=== PATIENT | female | born 1935 | race Caucasian/White ===

== ENCOUNTER 2018-05-11 23:05 | Emergency (ER) | payer MEDICARE ==
[2018-05-11] MEDS ORDERED: Adacel (T-DAP) 0.5 ML VIAL ONE (23:35)
== END 2018-05-12 00:05 | disposition home or self-care (01) ==
LOC: SCSER 23:05
DX: S61.451A Open bite of right hand, initial encounter (principal); S61.411A Laceration without foreign body of right hand, initial encounter; I10 Essential (primary) hypertension; W54.0XXA Bitten by dog, initial encounter
CPT/HCPCS: 90471; 90715

== ENCOUNTER 2018-05-21 20:43 | Inpatient (IN) | payer MEDICARE ==
[2018-05-21 21:31] LABS: Mean Corpuscular HGB CONC 32.4 g/dL (32.0-36.0); Mean Corpuscular Hemoglobin 29.6 pg (27.0-31.0); Mean Corpuscular Volume 91.5 fL (78.0-98.0); Mean Platelet Volume 8.2 fL (7.4-10.4); Platelet Count 276 thou/uL (130-400); RBC Distribution Width 12.5 % (11.5-14.5); Red Blood Cell (RBC) Count 4.06 mill/uL (4.20-5.40); White Blood Cell (WBC) Count 9.6 thou/uL (4.8-10.8)
--- NOTE | 2018-05-21 21:35 | RAD ---
RIGHT HAND THREE VIEWS: 05/21/18 HISTORY: Right hand injury. FINDINGS: Scattered osteoarthritic changes. Osseous structures are demineralized. No acute fracture or dislocat ion are apparent. Findings overlap on the lateral view. IMPRESSION: Mild degenerative changes. Osteoporosis. No acute osseous abnormalities are reliably demonstrated. POS: [facility]
--- NOTE | 2018-05-21 21:37 | RAD ---
CHEST ONE VIEW 05/21/18 HISTORY: Fever. FINDINGS: No comparison. The cardiac silhouette is magnified by projection. Pulmonary vasculature upper limits of normal. Medi astinum is midline. No lobar consolidation or evidence of pneumothorax. classroom monitor leads overlie the chest. IMPRESSION: No active cardiopulmonary abnormalities are demonstrated. POS: [facility]
[2018-05-21 21:45] LABS: Bilirubin Negative (Negative); Blood, Urine Negative (Negative); Clarity CLOUDY (Clear); Glucose, Urine (Dipstick) Negative (Negative); Leukocyte Large (Negative); Nitrite Positive (Negative); Protein, Urine (Dipstick) 30 mg/dL (Neg-Trace); Specific Gravity, Urine 1.016 (1.002-1.036); Urobilinogen 0.2 mg/dL (0.2-1.0)
[2018-05-21 21:47] LABS: Bacteria/HPF 4+ HPF (None Seen); Hyaline Casts/LPF 4-6 HYALINE CAST LPF (0-3 Hyaline); Pathc Cast-AUWi Flag 1.23 (0-2.49); RBC/HPF 0-3 HPF (0-3); Squamous Epithelial 0-3 HPF (0-3)
--- NOTE | 2018-05-21 21:49 | CT ---
CT HEAD NONCONTRAST 05/21/18 HISTORY: Fall. Head injury. FINDINGS: There is no evidence of acute intracranial hemorrhage or infarct. Mild diffuse cortical atrophy. No m ass effect or shift of midline structures. The visualized paranasal sinuses remain well aerated. IMPRESSION: No acute intracranial abnormalities are demonstrated. POS: [facility]
[2018-05-21 21:52] LABS: Band 15 % (5-11); Lymphocytes 5 % (21-51); MDiff Complete? YES; Neutrophil 80 % (42-75)
[2018-05-21 21:53] LABS: ALT (SGPT) 15 U/L (8-55); AST (SGOT) 23 U/L (5-34); Albumin 3.1 g/dL (3.4-4.8); Alkaline Phosphatase 133 U/L (40-150); Anion Gap 13 mmol/L (10-20); BUN (Urea Nitrogen) 25 mg/dL (9.8-20.1); Bilirubin, Total 0.2 mg/dL (0.2-1.2); CK (CPK) 62 U/L (29-168); Calc. Creatinine Clearance 0 mL/min (70-130); Calcium 9.6 mg/dL (7.8-10.44); Carbon Dioxide 21 mmol/L (23-31); Chloride 102 mmol/L (98-107); Estimated GFR-MDRD 55; Globulin 4.8 g/dL (2.4-3.5); Glucose 111 mg/dL (83-110); Potassium 3.7 mmol/L (3.5-5.1); Protein, Total 7.9 g/dL (6.0-8.3); Sodium 132 mmol/L (136-145)
--- NOTE | 2018-05-21 21:56 | CT ---
CT CERVICAL SPINE NONCONTRAST: 05/21/18 HISTORY: Fall. Neck injury. FINDINGS: Vertebral body heights are maintained. Minimal degenerative spondylolisthesis of the C4-5 level. Mult ilevel disc space narrowing. Prominent osteophytosis. Cervicothoracic junction is intact. No acute fr acture or dislocation. IMPRESSION: Degenerative changes of the cervical spine. No acute osseous abnormalities are demonstrated. POS: [facility]
[2018-05-21 21:59] LABS: CKMB 2.9 ng/mL (0-6.6); Troponin I Less than 0.010 ng/mL (< 0.028)
[2018-05-21] MEDS ORDERED: cefTRIAXone\\ROCEPHIN 2 GM VIAL ONE ×2 (22:04→22:07)
--- NOTE | 2018-05-21 22:59 | PDOC.FPRHP ---
- History of Present Illness Chief Complaint: fall History of Present Illness: Pt is an 82yo F with pmh of HTN and OA presenting for fall earlier today. This evening pt was in kitchen and began to feel weak and light headed. She reports going to sit in a bar stool and losing her balance, falling back and striking her head on the lanolium floor. Denies LOC. Pt had one episode of vomiting while being transported to ED but denies nausea on interview. Denies SOB/cp/ palpitations/dysuria but endorses increased frequency at night. Of note pt also reports a dog bite on her R hand 10 days ago that she has been treated for with 10 days of Bactrim. Reports that after a few days of bactrim, her pcp instructed her to take 14 more days of bactrim. This morning she had some pain along the joints in R finger 4 though the bite has since healed and was on the dorsal aspect of the thenar eminence. ED Course: CT head/neck- negative - Allergies/Adverse Reactions Allergies Allergy/AdvReac Type Severity Reaction Status Date / Time Penicillins Allergy Verified 05/22/18 01:02 - Home Medications Medication Instructions Recorded Confirmed Type Diltiazem HCl [Diltiazem 24Hr CD] 180 mg PO DAILY 05/21/18 05/21/18 History Losartan/Hydrochlorothiazide 1 tablet PO DAILY 05/21/18 05/21/18 History [Losartan-Hctz 100-25 mg Tab] - History PMHx: HTN, OA, possible afib PSHx: back surgery (unspecified), hysterectomy FHx: none Social: occasional social EtOH use, denies tobacco/drugs - Review of Systems General: reports: fever/chills, fatigue Eyes: denies: eye pain, vision changes ENT: denies: nasal congestion, rhinorrhea Respiratory: denies: cough, congestion, shortness of breath Cardiovascular: denies: chest pain, palpitation Gastrointestinal: denies: nausea, vomiting Genitourinary: reports: polyuria. denies: incontinence, dysuria Skin: denies: rashes, lesions Musculoskeletal: denies: pain, stiffness Neurological: reports: weakness. denies: numbness, syncope, seizure Psychological: denies: anxiety, depression - Vital signs BP: [112/54] HR: [96] RR: [26] Tmax: [101.7] Pox: [98]% on [RA] Wt: [90] - Physical Exam Constitutional: NAD, awake, alert and oriented HEENT: normocephalic and atraumatic, EOMI, grossly normal vision, grossly normal hearing, MMM Neck: supple, trachea midline Chest: no-tender to palpation Heart: RRR, pulses present, other (grad 3/6 holosystolic murmur) Lungs: CTAB, no respiratory distress Abdomen: soft, non-tender Musculoskeletal: normal structure, normal tone Skin: good turgor, capillary refill <2 seconds Heme/Lymphatic: no purpura, no petechia Psychiatric: normal mood and affect, good judgment and insight FMR H&P: Results - Labs Result Diagrams: 05/21/18 21:08 05/21/18 21:08 Lab results: WBC 9.6 thou/uL (4.8-10.8) 05/21/18 21:08 Hgb 12.0 g/dL (12.0-16.0) 05/21/18 21:08 Hct 37.2 % (36.0-47.0) 05/21/18 21:08 MCV 91.5 fL (78.0-98.0) 05/21/18 21:08 Plt Count 276 thou/uL (130-400) 05/21/18 21:08 Band Neuts % (Manual) 15 % (5-11) H 05/21/18 21:08 Sodium 132 mmol/L (136-145) L 05/21/18 21:08 Potassium 3.7 mmol/L (3.5-5.1) 05/21/18 21:08 Chloride 102 mmol/L (98-107) 05/21/18 21:08 Carbon Dioxide 21 mmol/L (23-31) L 05/21/18 21:08 BUN 25 mg/dL (9.8-20.1) H 05/21/18 21:08 Creatinine 0.97 mg/dL (0.6-1.1) 05/21/18 21:08 Glucose 111 mg/dL (83-110) H 05/21/18 21:08 Lactic Acid 2.4 mmol/L (0.5-2.2) H 05/21/18 21:08 Calcium 9.6 mg/dL (7.8-10.44) 05/21/18 21:08 Total Bilirubin 0.2 mg/dL (0.2-1.2) 05/21/18 21:08 AST 23 U/L (5-34) 05/21/18 21:08 ALT 15 U/L (8-55) 05/21/18 21:08 Alkaline Phosphatase 133 U/L (40-150) 05/21/18 21:08 Creatine Kinase 62 U/L (29-168) 05/21/18 21:08 CK-MB (CK-2) 2.9 ng/mL (0-6.6) 05/21/18 21:08 Serum Total Protein 7.9 g/dL (6.0-8.3) 05/21/18 21:08 Albumin 3.1 g/dL (3.4-4.8) L 05/21/18 21:08 Urine Ketones Negative mg/dL (Negative) 05/21/18 21:19 Urine Blood Negative (Negative) 05/21/18 21:19 Urine Nitrite Positive (Negative) H 05/21/18 21:19 Ur Leukocyte Esterase Large (Negative) H 05/21/18 21:19 Urine RBC 0-3 HPF (0-3) 05/21/18 21:19 Urine WBC Greater Than 50-TNTC HPF (0-3) H 05/21/18 21:19 Ur Squamous Epith Cells 0-3 HPF (0-3) 05/21/18 21:19 Urine Bacteria 4+ HPF (None Seen) H 05/21/18 21:19 FMR H&P: A/P - Problem List (1) Sepsis secondary to UTI Current Visit: Yes Status: Acute Code(s): A41.9 - SEPSIS, UNSPECIFIED ORGANISM; N39.0 - URINARY TRACT INFECTION, SITE NOT SPECIFIED (2) A-fib Current Visit: Yes Status: Acute Code(s): I48.91 - UNSPECIFIED ATRIAL FIBRILLATION (3) Lactic acid acidosis Current Visit: Yes Status: Acute Code(s): E87.2 - ACIDOSIS (4) Hypertension Current Visit: Yes Status: Acute Code(s): I10 - ESSENTIAL (PRIMARY) HYPERTENSION - Plan Sepsis 2/2 UTI A- fever, malaise, and history of weakness/falls. CT head/neck negative for acute pathology. UA positive for UTI and pt met SIRS criteria (HR and fever) on admission. s/p rocephin in ED. P- continue Rocephin q24hr - IVF - await UCx Lactic Acidosis 2/2 above A- lactate 2.4 P- IVF Hx of atrial fibrillation A- reports being stable on home diltiazem P- home meds -monitor on telemetry HTN A- pt at goal P- continue home medications FMR H&P: Upper Level - Pertinent history 82 yo CF with history of HTN, afib, and OA presenting with fever, weakness, and history of falls. Pt has felt weakness and overall malaise over the last few days. Pt notes she was recently treated outpatient for a dog bite to right hand with 5 day course of Bactrim. Pt's son noted she was more dizzy today and took a temperature at home that was elevated. Pt presented to ED. Pt denies LEES, CP, SOB, abd pain, NVD, dysuria, rash, sick contacts, or recent travel. - Pertinent findings Vitals: see internal medicine doctor note Gen: Well appearing in NAD CV: RRR, no MMR Resp: good effort, CTAB Abd: BS+, soft, NTTP Ext: well healed right hand, no evidence of cellulitis - Plan Date/Time: 05/21/18 0435 I, Misael Hogue MD, have evaluated this patient and agree with findings/plan as outlined by internal medicine doctor resident. Pertinent changes/additions are listed here. 1. Sepsis 2/2 UTI -Pt presents with fever, malaise, and history of weakness/falls. Workup consistent with UTI and pt was febrile and slightly tachycardic on presentation. Will admit to inpatient telemetry due to history of afib and continue mIVF and treatment for UTI with Rocephin. -Consult PT for evaluation and treatment, pt may benefit from rehab/SNF placement at time of discharge. 2. Lactic Acidosis 2/2 above -IVF and trend 3. Hx of atrial fibrillation -Continue home medications -Monitor on telemetry 4. HTN -At goal, continue janiya medications FULL code PPx: Lovenox for VTE, no GI indicated Disposition: Admit to inpatient telemetry for anticipated length of stay greater than 2 midnights, pending clinical course. Attending Addendum - Attending Addendum Date/Time: 05/21/18 2345 I personally evaluated the patient and discussed the management with Dr. Anderson /Mykel. I agree with the History, Examination, Assessment and Plan documented above with any addition or exceptions noted below. Patient here with few days of malaise and weakness. She has been treated outpatient for possible hand wound infection. On exam, she has no major abnormalities. Febrile at home. Her UA is consistent with UTI. Will begin treatment for UTI with Rocephin. Fluid hydrate, obtain blood and urine cultures. Treat symptomatically as needed for fever/pain. She has history of afib and has had a few recent falls so will monitor on telemetry. Anticipate 2- 3 days hospitalization and may need SNF or rehab upon discharge.
[2018-05-22] MEDS ORDERED: Sodium Chloride 0.9% 1,000 ML IV SCH (01:03)
[2018-05-22] MEDS ORDERED: Acetaminophen 325 MG TAB PO PRN (01:03)
[2018-05-22] MEDS ORDERED: Ondansetron ODT 4 MG TAB SL PRN (01:03)
[2018-05-22] MEDS ORDERED: Ondansetron PF 4 MG/2 ML Vial IVP PRN (01:03)
[2018-05-22] MEDS ORDERED: Ondansetron ODT 4 MG TAB PO PRN (01:04)
[2018-05-22] MEDS: Lactated Ringer's 1,000 ML IV SCH ×2 (01:21→13:40)
[2018-05-22 01:48] LABS: Lactic Acid 1.7 mmol/L (0.5-2.2)
[2018-05-22] MEDS ORDERED: Magnesium 2 GM/50 ML 2 GM in Premix Bag 1 BAG IVPB SCH (03:30)
[2018-05-22 05:25] LABS: #Basophils 0.1 thou/uL (0.0-0.2); #Lymphocytes 0.4 thou/uL (1.20-3.40); #Monocytes 0.2 thou/uL (0.11-0.59); %Basophils 0.7 % (0.0-1.0); %Eosinophils 0.2 % (0.0-10.0); %Lymphocytes 3.2 % (21.0-51.0); %Monocytes 1.8 % (0.0-10.0); %Neutrophils 94.2 % (42.0-75.0); Mean Corpuscular HGB CONC 32.1 g/dL (32.0-36.0); Mean Corpuscular Hemoglobin 29.1 pg (27.0-31.0); Mean Corpuscular Volume 90.7 fL (78.0-98.0); Mean Platelet Volume 8.2 fL (7.4-10.4); Platelet Count 237 thou/uL (130-400); RBC Distribution Width 12.3 % (11.5-14.5); Red Blood Cell (RBC) Count 3.42 mill/uL (4.20-5.40); White Blood Cell (WBC) Count 12.7 thou/uL (4.8-10.8)
[2018-05-22 05:40] LABS: Anion Gap 7 mmol/L (10-20); BUN (Urea Nitrogen) 24 mg/dL (9.8-20.1); Calc. Creatinine Clearance 73 mL/min (70-130); Calcium 8.6 mg/dL (7.8-10.44); Carbon Dioxide 21 mmol/L (23-31); Chloride 107 mmol/L (98-107); Estimated GFR-MDRD 63; Glucose 133 mg/dL (83-110); Potassium 3.4 mmol/L (3.5-5.1); Sodium 132 mmol/L (136-145)
--- NOTE | 2018-05-22 06:15 | PDOC.FM ---
- Subjective Subjective: Ms. Bravo is sitting up in bed deciding what she would like to order for supper, She reports her weakness is improved and she would like to go home today. - Objective Vital Signs & Weight: Vital Signs (12 hours) Temp Pulse Resp BP Pulse Ox 05/22/18 04:08 98.3 F 75 16 100/52 L 93 L 05/22/18 00:55 99.2 F 83 16 93/54 L 96 Weight Weight 90.356 kg Result Diagrams: 05/22/18 04:45 05/22/18 04:45 <Dominguez Stein - Last Filed: 05/22/18 07:25> - Objective Vital Signs & Weight: Vital Signs (12 hours) Temp Pulse Resp BP Pulse Ox 05/22/18 08:35 98.1 F 71 18 111/52 L 97 05/22/18 04:08 98.3 F 75 16 100/52 L 93 L 05/22/18 00:55 99.2 F 83 16 93/54 L 96 Weight Weight 90.356 kg Result Diagrams: 05/22/18 04:45 05/22/18 04:45 <German Mcnamara - Last Filed: 05/22/18 10:15> Phys Exam - Physical Examination Constitutional: NAD HEENT: moist MMs Respiratory: no wheezing, no rales, no rhonchi, clear to auscultation bilateral Cardiovascular: RRR, no significant murmur Gastrointestinal: soft, non-tender, no distention Musculoskeletal: no edema Neurological: moves all 4 limbs Psychiatric: normal affect Skin: no rash <Dominguez Stein - Last Filed: 05/22/18 07:25> Dx/Plan (1) Sepsis secondary to UTI Code(s): A41.9 - SEPSIS, UNSPECIFIED ORGANISM; N39.0 - URINARY TRACT INFECTION, SITE NOT SPECIFIED Status: Acute (2) Hypomagnesemia Code(s): E83.42 - HYPOMAGNESEMIA Status: Acute (3) A-fib Code(s): I48.91 - UNSPECIFIED ATRIAL FIBRILLATION Status: Acute (4) Hypertension Code(s): I10 - ESSENTIAL (PRIMARY) HYPERTENSION Status: Acute - Plan Plan: Sepsis 2/2 UTI - UA positive for UTI and pt met SIRS criteria (HR and fever) on admission. s/p rocephin in ED. - continue Rocephin q24hr - Adequate 30ml/kg fluid resuscitation in ED - gentle IVF LR @ 80/hr, encourage PO fluids - await UCx and sensitivities Hypomagnesemia - s/p 2gm IV - recheck in AM Lactic Acidosis 2/2 above - lactate 2.4, down trend Hx of atrial fibrillation - reports being stable on home diltiazem - continue home meds - monitor on telemetry HTN - pt at goal - continue home medications Code: Full ppx: Lovenox Dispo: continue to monitor on tele, gentle IVF resuscitation, continue abx and await culture sensitivities <Dominguez Stein - Last Filed: 05/22/18 07:25> Attending Addendum - Attending Addendum Date/Time: 05/22/18 1014 I personally evaluated the patient and discussed the management with Dr. Stein. I agree with the History, Examination, Assessment and Plan documented above with any addition or exceptions noted below. Patient feeling improved today. Continue treatment for UTI sepsis. IVF, cultures pending, and Rocephin. Trend procalcitonin with repeat tomorrow. No reason to suspect major MDR pathogen at this time. <German Mcnamara - Last Filed: 05/22/18 10:15>
[2018-05-22] MEDS: Enoxaparin Sodium 40 MG/0.4 ML SYRINGE SC SCH (08:33)
[2018-05-22] MEDS: Losartan/Hydrochlorothiazide 100 mg/25 mg Tablet PO SCH (08:39)
[2018-05-22] MEDS: Acetaminophen 325 MG TAB PO PRN ×2 (15:41→19:15)
[2018-05-22] MEDS ORDERED: cefTRIAXone\\ROCEPHIN 1 GM in Sodium Chloride 0.9% 100 ML IVPB SCH (22:00)
[2018-05-23] MEDS: Lactated Ringer's 1,000 ML IV SCH (05:15)
--- NOTE | 2018-05-23 06:15 | PDOC.FM ---
- Subjective Subjective: NAEO. Patient denies any N/V/D, constipation, chest pain or SOB. Also denies any orthostasis since admission and says her lightheadedness has greatly improved. - Objective MAR Reviewed: Yes Vital Signs & Weight: Vital Signs (12 hours) Temp Pulse Resp BP Pulse Ox 05/23/18 04:00 98.0 F 65 18 114/56 L 93 L 05/23/18 00:00 98.5 F 68 18 106/51 L 95 05/22/18 20:20 98.5 F 73 16 95/52 L 94 L 05/22/18 20:15 94 L Weight Weight 90.356 kg I&O: 05/21/18 05/22/18 05/23/18 06:59 06:59 06:59 Intake Total 2000 Output Total 200 Balance 1800 Result Diagrams: 05/23/18 05:45 05/23/18 05:45 <Aleksandra Shepherd - Last Filed: 05/23/18 08:38> - Objective Vital Signs & Weight: Weight Admit Weight 90.356 kg Weight 52.2 kg I&O: 05/23/18 05/24/18 05/25/18 06:59 06:59 06:59 Intake Total 2000 Output Total 200 Balance 1800 Result Diagrams: 05/23/18 05:45 05/23/18 05:45 <Leo Resendiz - Last Filed: 05/24/18 08:08> Phys Exam - Physical Examination Constitutional: NAD HEENT: moist MMs Neck: supple, full ROM Respiratory: no wheezing, no rales, no rhonchi, clear to auscultation bilateral Cardiovascular: RRR, no significant murmur Gastrointestinal: soft, non-tender, no distention, positive bowel sounds Musculoskeletal: no edema, pulses present Neurological: non-focal, normal sensation, moves all 4 limbs Psychiatric: normal affect, A&O x 3 Skin: no rash, normal turgor, cap refill <2 seconds <Aleksandra Shepherd - Last Filed: 05/23/18 08:38> Dx/Plan (1) A-fib Code(s): I48.91 - UNSPECIFIED ATRIAL FIBRILLATION Status: Acute (2) Hypertension Code(s): I10 - ESSENTIAL (PRIMARY) HYPERTENSION Status: Acute (3) Hypomagnesemia Code(s): E83.42 - HYPOMAGNESEMIA Status: Acute (4) Lactic acid acidosis Code(s): E87.2 - ACIDOSIS Status: Acute (5) Sepsis secondary to UTI Code(s): A41.9 - SEPSIS, UNSPECIFIED ORGANISM; N39.0 - URINARY TRACT INFECTION, SITE NOT SPECIFIED Status: Acute - Plan Plan: UTI - UA positive for UTI. Cx + for E. coli. Will switch to PO ciprofloxacin today per susceptibilities. - Will consider de-escalating IVFs today if patient is tolerating PO. Sepsis 2/2 UTI - Resolved. Vitals have been WNLs since arriving to the floor and patient has been afebrile. - Blood cultures tentatively negative. Hypophosphatemia - Phosphorus low at 2.0 this AM. - Will replace with PO Phos-Nak. Hyponatremia - Na 131 this AM. Hypomagnesemia - Resolved. Mg 1.8 this AM. Lactic Acidosis 2/2 above - lactate 2.4 & downtrended to 1.7 Hx of atrial fibrillation Aware, patient has been in NSR since admission. - Will continue home meds & continue to monitor on telemetry. HTN - Patient at goal. - Will continue home medications. Code: Full ppx: Lovenox Dispo: Will continue to monitor on tele & switch to PO abx today. Possible d/c home later today. <Aleksandra Shepherd - Last Filed: 05/23/18 08:38> Attending Addendum - Attending Addendum Date/Time: 05/24/18 0808 I personally evaluated the patient and discussed the management with Dr. Shepherd yesterday morning. I agree with the History, Examination, Assessment and Plan documented above with any addition or exceptions noted below. We will switch to cephalosporins po antibiotic. <Leo Resendiz - Last Filed: 05/24/18 08:08>
[2018-05-23 06:25] LABS: ALT (SGPT) 19 U/L (8-55); AST (SGOT) 33 U/L (5-34); Albumin 2.5 g/dL (3.4-4.8); Alkaline Phosphatase 98 U/L (40-150); Anion Gap 10 mmol/L (10-20); BUN (Urea Nitrogen) 23 mg/dL (9.8-20.1); Bilirubin, Total 0.2 mg/dL (0.2-1.2); Calc. Creatinine Clearance 86 mL/min (70-130); Calcium 8.9 mg/dL (7.8-10.44); Carbon Dioxide 19 mmol/L (23-31); Chloride 106 mmol/L (98-107); Estimated GFR-MDRD 77; Globulin 3.8 g/dL (2.4-3.5); Glucose 98 mg/dL (83-110); Magnesium 1.8 mg/dL (1.6-2.6); Potassium 3.6 mmol/L (3.5-5.1); Protein, Total 6.3 g/dL (6.0-8.3); Sodium 131 mmol/L (136-145)
[2018-05-23 07:06] LABS: #Eosinphils 0.4 thou/uL (0.0-0.7); #Lymphocytes 0.8 thou/uL (1.20-3.40); #Monocytes 0.3 thou/uL (0.11-0.59); #Neutrophils 3.8 thou/uL (1.40-6.50); %Basophils 0.2 % (0.0-1.0); %Eosinophils 7.1 % (0.0-10.0); %Lymphocytes 14.9 % (21.0-51.0); %Monocytes 5.6 % (0.0-10.0); %Neutrophils 72.3 % (42.0-75.0); Mean Corpuscular HGB CONC 31.1 g/dL (32.0-36.0); Mean Corpuscular Hemoglobin 28.5 pg (27.0-31.0); Mean Corpuscular Volume 91.4 fL (78.0-98.0); Mean Platelet Volume 8.7 fL (7.4-10.4); Platelet Count 219 thou/uL (130-400); RBC Distribution Width 12.3 % (11.5-14.5); White Blood Cell (WBC) Count 5.2 thou/uL (4.8-10.8)
[2018-05-23] MEDS: Losartan/Hydrochlorothiazide 100 mg/25 mg Tablet PO SCH (08:16)
[2018-05-23] MEDS: Enoxaparin Sodium 40 MG/0.4 ML SYRINGE SC SCH (08:16)
[2018-05-23] MEDS ORDERED: Cipro 250 MG TAB PO SCH (09:00)
[2018-05-23] MEDS ORDERED: Ciprofloxacin 500 MG TAB PO SCH ×2 (09:00→20:00)
[2018-05-23] MEDS ORDERED: Nitrofurantoin Monohyd/M-Cryst 100 MG CAP PO SCH (09:00)
[2018-05-23 09:26] LABS: Lactate 2.86 mmol/L (0.50-2.20)
[2018-05-23] MEDS ORDERED: Cefdinir 300 MG CAP PO SCH ×3 (10:30→21:00)
[2018-05-23 12:24] VITALS: BMI 21.0
[2018-05-23 13:18] LABS: Lactic Acid 1.2 mmol/L (0.5-2.2)
[2018-05-23 16:18] VITALS: BP 129/57; TEMP 98.2
--- NOTE | 2018-05-24 07:47 | DIS-2 ---
DATE OF ADMISSION: 05/21/2018 DATE OF DISCHARGE: 05/23/2018. RESIDENT: Dr. Aleksandra Shepherd ADMITTING ATTENDING: German Mcnamara MD DISCHARGE ATTENDING: Dr. Leo Resendiz M.D. CONSULTATIONS: None. PROCEDURES: 1. Right hand x-ray which shows some mild degenerative changes and osteoporosis , but no acute osseous abnormalities. 2. Brain CT which showed no acute intracranial abnormalities. 3. Cervical spine CT which showed degenerative changes of the cervical spine with no acute osseous abnormalities. 4. Chest x-ray which showed no active cardiopulmonary abnormalities. PRIMARY DISCHARGE DIAGNOSES: 1. Sepsis secondary to urinary tract infection. 2. Lactic acidosis. 3. Hypomagnesemia. 4. Hypophosphatemia. SECONDARY DIAGNOSES: 1. Hypertension. 2. Atrial fibrillation. DISCHARGE MEDICATIONS: 1. Acetaminophen 650 mg p.o. q.4 hours p.r.n. for pain. 2. Aspirin 81 mg p.o. daily. 3. Diltiazem 180 mg p.o. daily. 4. Losartan/hydrochlorothiazide 100/25 mg 1 tab p.o. daily. HOSPITAL COURSE: The patient is an 82-year-old female with a past medical history significant for hypertension and atrial fibrillation who presented to the emergency department with chief complaint of a fall earlier on the day of presentation secondary to feeling weak and lightheaded. She endorsed hitting her head on the linoleum floor, but denied any loss of consciousness. She also endorsed some associated vomiting. On presentation to the emergency department, the patient was noted to be febrile with a temperature of 101.7F. Routine lab work was significant for an elevated lactic acid at 2.4 and a procalcitonin of 9.23. A urinalysis was also obtained, which was significant for nitrites, large leukocyte esterase, greater than 50 white blood cells, and 4+ bacteria suggesting she had a urinary tract infection. Routine imaging was also obtained including a right hand x-ray, brain CT, cervical spine CT and a chest x-ray, all of which were negative. However, given the patient's fever and elevated lactic acid, she was determined to be septic secondary to her urinary tract infection and was given one dose of IV Rocephin in the emergency department and admitted to the medical services for close observation overnight. The patient was continued on IV Rocephin for her second day of hospitalization as well as gentle IV fluids with LR at 80 mL an hour. On her second day of hospitalization, the patient was noted to have a low serum potassium and Mg of 3.4 and 1.1, which were replaced. By the morning of discharge, the patient's potassium and Mg had risen to be within normal levels; however, her serum phosphorus was low at 2.0. This was replaced with p.o. Fosamax. By the morning of discharge, it was noted that the patient's lactic acid had down trended from 2.4-1.2 and her procalcitonin also down trended to 8.34. The patient was tolerating p.o. and stated that her weakness and lightheadedness had completely resolved since admission. She was therefore transitioned to p.o. antibiotics and her IV fluids were discontinued. After close monitoring for the remainder of the morning into the afternoon, she was cleared to be discharged home with close follow up with her primary care physician in stable condition. DISPOSITION: Stable. DISCHARGE INSTRUCTIONS: 1. Location: Home. 2. Diet: Heart healthy diet. 3. Activity: As tolerated. 4. Followup: The patient was instructed to follow up with her primary care physician, Dr. Irwin Poe within 10 days of discharge for a followup urinalysis and possible cultures to ensure resolution of her urinary tract infection. ABELARDO
== END 2018-05-23 17:33 | disposition home or self-care (01) | DRG 872 ==
LOC: ERS 20:43 → 2NO 22:17
PROVIDERS: ADMIT Student in an Organized Health Care Education/Training Program; ATTEND Student in an Organized Health Care Education/Training Program
DX: A41.51 Sepsis due to Escherichia coli [E. coli] (principal); N39.0 Urinary tract infection, site not specified; E87.2 Acidosis; E83.42 Hypomagnesemia; E83.39 Other disorders of phosphorus metabolism; I48.91 Unspecified atrial fibrillation; I10 Essential (primary) hypertension; M81.0 Age-related osteoporosis without current pathological fracture; M19.90 Unspecified osteoarthritis, unspecified site; Z79.899 Other long term (current) drug therapy
CPT/HCPCS: 36415; 51701; 70450; 71045; 72125; 80048; 80053; 81003; 81015; 82553; 83605; 83735; 84100; 84145; 84484; 85025; 87040; 87077; 87086; 87186; 87804; 93005; 96361; 96365; G8978-GP-CI; G8979-GP-CI; G8980-GP-CI; J0696; J1650; J7050; Q0162

== ENCOUNTER 2019-12-12 07:32 | Outpatient (CLI) | payer MEDICARE ==
[2019-12-12 08:11] LABS: Estimated GFR-MDRD - POC Greater than 90
--- NOTE | 2019-12-12 10:04 | MRI ---
MRI cervical spine with and without contrast: 12/12/2019 HISTORY: 84 year old female with "R 26.89, functional gait abnormality" COMPARISON: None FINDINGS: All images are degraded by motion artifact, some sequences worse than others. Vertebral body heights are maintained. Cervical spinal cord is normal in caliber. No definite intramedullary signal abnormality is identified, although the sensitivity is decreased because of motion artifact. No syrin x. No abnormal enhancement or mass identified involving intramedullary, extramedullary-intradural, extradural, intraosseous, or perivertebral, spaces. High-grade disc space narrowing, moderate to brian re, at C4-5 and C5-6; and moderate disc space narrowing at C3-4 and C6-7. Facet DJD is severe on the right at C2-3, especially C3-4, and C4-5, and severe on the left at C4-5. Facet DJD is moderate a t most other levels. Small to moderate-sized uncinate process osteophytes encroach upon neural foramina at most levels. C1-2: No high-grade central spinal canal stenosis. C2-3: Thickened ligamentum flavum abuts the dorsal surface of spinal cord. Moderate central spinal ca nal stenosis. Moderate right neural foraminal stenosis. Severe left neural foraminal stenosis. C3-4: Moderate central spinal canal stenosis. Mild right neural foraminal stenosis. Severe left neura l foraminal stenosis. Mild grade 1 anterolisthesis of C3 on C4. C4-5: Mild central spinal canal stenosis. Moderate right neural foraminal stenosis. Mild left neural foraminal stenosis. Mild grade 1 anterolisthesis of C4 on C5. C5-6: Broad-based central and bilateral paracentral disc-osteophyte complex encroaches upon ventral a spect of spinal canal, causing moderate central spinal canal stenosis. Probably moderate bilateral neural foraminal stenosis. C6-7: No significant central or neural foraminal stenosis. C7-T1: Ligamentum flavum thickening. Moderate to severe bilateral neural foraminal stenosis. Moderate central spinal canal stenosis. IMPRESSION: 1. Moderate Cervical spondylosis, with multilevel degenerative disc disease and multilevel high-grade facet osteoarthrosis, including severe. 2. Multilevel central spinal canal stenosis and neural foraminal stenosis..
--- NOTE | 2019-12-12 10:15 | MRI ---
MRI BRAIN WITH AND WITHOUT CONTRAST: DATE: 12/12/2019 HISTORY: 84 year old female with R 26.89 functional gait abnormality and dementia. TECHNIQUE: Multiplanar, multisequence MRI of the brain obtained pre and post IV injection of gadolinium based co ntrast agent. FINDINGS: There is no obstructive hydrocephalus. There is no midline shift or any other evidence of mass effect . There is no extra-axial fluid collection. There are numerous tiny and small scattered focal T2-hyperintensities throughout the cerebral white matter and derek consistent with chronic ischemic wh ite matter changes due to microvascular atherosclerosis. There is diffuse brain parenchymal volume loss. There is no evidence of recent hemorrhage, mass, abnormal enhancement, or restricted diffusion. 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 Because of motion artifa ct, it is uncertain whether or not there is mild diffuse enhancement of this. It has not significant changed in size compared to noncontrast cervical spine CT of 05/21/2018. The CT attenuati on was approximately 47 Hounsfield units, solid. It contained a couple of punctate calcifications. IMPRESSION: 1) Involutional changes and mild-moderate chronic ischemic white matter changes. 2) no acute intracranial pathology. 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
--- NOTE | 2019-12-12 10:42 | MRI ---
MRI LUMBAR SPINE WITH AND WITHOUT CONTRAST: DATE: 12/12/2019 HISTORY: 84-year-old female with R 26.89 functional gait abnormality COMPARISON: None TECHNIQUE: Multiple sequences obtained in axial and sagittal planes, pre and post IV injection of gadolinium-bas ed contrast agent. FINDINGS: 5 lumbar-type vertebrae. Vertebral body heights are maintained. Bilateral pedicle screws at L3, L4, a nd L5. The metallic hardware causes magnetic susceptibility artifact, partially obscuring portions of the spinal canal and neural foramina at those levels, and obscuring bone marrow signal. All images are degraded by patient motion. Patient reportedly has dementia, with limited ability to cooperate. No definite abnormal enhancement identified within the spinal canal superior to the L2 lev el, or at L5-S1.. T12-L1:Conus medullaris terminates at this level. Essentially normal. L1-2:Disc space maintained. Mild disc bulge. Moderate bilateral neural foraminal stenosis. Mild ligam entum flavum thickening and degenerative facet hypertrophy. Moderate central spinal canal stenosis. Small posterior epidural fat pad. Moderate to severe thecal sac stenosis with crowding of cauda equin a. L2-3:Moderate ligamentum flavum thickening. Retrolisthesis of L2 on L3. Diffuse disc bulge. Severe ce ntral spinal canal stenosis. Moderate bilateral neural foraminal stenosis. L3-4:No central spinal canal stenosis. Left neural foraminal stenosis, possibly moderate. No high-gra de right neural foraminal stenosis. Interbody cage material. Moderate disc space narrowing. Questionable laminectomy defect. L4-5:Grade 1 anterolisthesis of L4 on L5. Moderate to severe disc space narrowing with degenerative e ndplate changes. No high-grade right neural foraminal stenosis. Questionable mild or moderate left neural foraminal stenosis. Probable right hemilaminectomy defect. No central spinal canal stenosis. L5-S1:No central spinal canal stenosis. Disc space maintained. No high-grade neural foraminal stenosi s. IMPRESSION: 1) status post posterior lumbar fusion with bilateral pedicle screws at L3, L4, and L5, stabilizing a grade 1 spondylolisthesis at L4-5. 2) probable laminectomies at L3-4 and L4-5. No no central spinal canal stenosis at those levels. 3) severe central spinal canal stenosis at L2-3. 4) high-grade central stenosis at L1-2.
== END 2019-12-12 07:33 | disposition home or self-care (01) ==
LOC: TBSIIMAG 07:32
PROVIDERS: ATTEND Neurological Surgery
DX: R26.89 Other abnormalities of gait and mobility (principal); R53.82 Chronic fatigue, unspecified; M43.16 Spondylolisthesis, lumbar region; M48.061 Spinal stenosis, lumbar region without neurogenic claudication; I67.82 Cerebral ischemia; M47.812 Spondylosis without myelopathy or radiculopathy, cervical region; M50.30 Other cervical disc degeneration, unspecified cervical region; M48.02 Spinal stenosis, cervical region; Z98.1 Arthrodesis status
CPT/HCPCS: 70553; 72156; 72158; 82565

== ENCOUNTER 2020-01-05 10:36 | Outpatient (CLI) | payer MEDICARE ==
--- NOTE | 2020-01-05 19:27 | NM ---
NUCLEAR MEDICINE BRAIN IMAGING EXAM: 01/05/20 HISTORY: Unspecified hallucinations. TECHNIQUE: A nuclear medicine brain scan was performed using 4.5 millicuries of I-123 Ioflupane. FINDINGS: Uptake is seen in the basal ganglia in a comma configuration. This is symmetric. IMPRESSION: Normal uptake of the radiopharmaceutical in the basal ganglia excludes a parkinsonian syndrome. POS: [facility]
== END 2020-01-05 10:37 | disposition home or self-care (01) ==
LOC: NM 10:36
PROVIDERS: ATTEND Nurse Practitioner Acute Care
DX: R44.3 Hallucinations, unspecified (principal)
CPT/HCPCS: 78803; A9584

== ENCOUNTER 2020-02-04 14:14 | Inpatient (IN) | payer MEDICARE ==
[2020-02-04 15:02] LABS: #Eosinphils 0.1 thou/uL (0.0-0.7); #Lymphocytes 1.2 thou/uL (1.20-3.40); #Monocytes 0.6 thou/uL (0.11-0.59); #Neutrophils 5.9 thou/uL (1.40-6.50); %Basophils 0.5 % (0.0-1.0); %Eosinophils 1.4 % (0.0-10.0); %Lymphocytes 15.8 % (21.0-51.0); %Monocytes 7.1 % (0.0-10.0); %Neutrophils 75.2 % (42.0-75.0); Hemoglobin 10.6 g/dL (12.0-16.0); Mean Corpuscular HGB CONC 31.3 g/dL (32.0-36.0); Mean Corpuscular Hemoglobin 28.3 pg (27.0-31.0); Mean Corpuscular Volume 90.7 fL (78.0-98.0); Mean Platelet Volume 7.6 fL (7.4-10.4); Platelet Count 460 thou/uL (130-400); RBC Distribution Width 14.4 % (11.5-14.5); Red Blood Cell (RBC) Count 3.75 mill/uL (4.20-5.40); White Blood Cell (WBC) Count 7.8 thou/uL (4.8-10.8)
[2020-02-04 15:25] LABS: ALT (SGPT) Less than 7 U/L (8-55); AST (SGOT) 23 U/L (5-34); Albumin 2.7 g/dL (3.4-4.8); Alkaline Phosphatase 170 U/L (40-110); Anion Gap 12 mmol/L (10-20); BUN (Urea Nitrogen) 40 mg/dL (9.8-20.1); Bilirubin, Total 0.4 mg/dL (0.2-1.2); Calc. Creatinine Clearance 0 mL/min (70-130); Calcium 9.9 mg/dL (7.8-10.44); Carbon Dioxide 23 mmol/L (23-31); Chloride 99 mmol/L (98-107); Estimated GFR-MDRD 69; Globulin 4.7 g/dL (2.4-3.5); Glucose 126 mg/dL (83-110); Potassium 3.6 mmol/L (3.5-5.1); Protein, Total 7.4 g/dL (6.0-8.3); Sodium 130 mmol/L (136-145)
[2020-02-04 16:04] LABS: CK (CPK) 14 U/L (29-168); Lipase 8 U/L (8-78)
[2020-02-04 16:24] LABS: Bilirubin Negative (Negative); Blood, Urine Negative (Negative); Clarity Turbid (Clear); Glucose, Urine (Dipstick) Normal (Negative); Ketone, Urine Negative (Negative); Leukocyte Negative Leu/uL (Negative); Nitrite Negative (Negative); Protein, Urine (Dipstick) 10 mg/dL (Neg-Trace); Specific Gravity, Urine 1.021 (1.002-1.036); Urobilinogen Normal mg/dL (Less than 2)
--- NOTE | 2020-02-04 17:18 | RAD ---
PORTABLE UPRIGHT FRONTAL CHEST RADIOGRAPH: Date: 02-04-2020 Comparison: 05-21-18 History: Leg swelling and weakness. FINDINGS: Nonspecific diffuse increased linear interstitial density noted. Pulmonary vascular congestion presen t. New slight blunting of the left costophrenic angle suggests new small volume left pleural effusion. T here is new density in the right lung base with obscuration of the right heart border and right hemid iaphragm with blunting of the right costophrenic angle, evidence of a combination of pleural fluid an d nonspecific right middle/right lower lobe parenchymal opacity. IMPRESSION: Pulmonary vascular congestion, diffuse interstitial prominence, bilateral pleural effusions, and airs pace disease in the right base. A combination of findings suggest pulmonary infectious pneumonitis or aspiration is a possibility. Follow up imaging following treatment advised. POS: [facility]
[2020-02-04] MEDS ORDERED: Azithromycin 500 MG VIAL ONE (18:51)
--- NOTE | 2020-02-04 18:56 | PDOC.FPRHP ---
- History of Present Illness Chief Complaint: Generalized weakness, edema, poor urine output History of Present Illness: Ms. Bravo is an 84 yo female with past medical hx of Lewy Body Dementia who presents to the ED with complaints of generalized weakness, lower extremity edema, and poor urine output. Her son, who is her primary caregiver, is the historian. 3 days ago, he noticed that the pt began having decreased urine output. He reports that she normally urinates every 2.5 hours, but has been waking up with a dry diaper and has not needed to urinate during the night. He reports that although she has been eating like normal, her fluid intake has been decreased. During this time, he has also noticed that her lower extremities were more edematous than normal and that, although she is typically immobile, he is having to help her more than usual. Pt is also complaining of pain, but has difficulty expressing the location of the pain. ED Course: Pt received U/A, chest X/ray, ECG, Labs in the ED Received Azithro 500 mg - Allergies/Adverse Reactions Allergies Allergy/AdvReac Type Severity Reaction Status Date / Time Penicillins Allergy Verified 05/22/18 05:03 - Home Medications Medication Instructions Recorded Confirmed Type Diltiazem HCl [Diltiazem 24Hr CD] 180 mg PO DAILY 05/21/18 05/21/18 History Losartan/Hydrochlorothiazide 1 tablet PO DAILY 05/21/18 05/21/18 History [Losartan-Hctz 100-25 mg Tab] Acetaminophen [Tylenol Regular 650 mg PO Q4H PRN tab 05/23/18 Rx Strength] Aspirin [Adult Aspirin] 81 mg PO QAM #30 tablet. 05/23/18 Rx Cefdinir [Omnicef] 300 mg PO BID #15 cap 05/23/18 Rx - History PMHx: - Lewy body dementia -HTN -Afib PSHx: -hysterectomy -back surgery ~6yrs ago FHx: noncontributory Social: lives with her son who is her primary caregiver, no hx of tobacco or alcohol use - Review of Systems ROS unobtainable: due to mental status General: reports: weight/appetite/sleep changes. denies: fever/chills Gastrointestinal: reports: abdominal pain Musculoskeletal: reports: swelling - Vital signs BP: 102-119/50-61 HR: 97-107 RR: 20-26 Tmax: 98.4 Pox: 95% on room air Wt: 70 kg - Physical Exam Constitutional: NAD -Constitutional: Oriented to person and place HEENT: normocephalic and atraumatic, PERRLA, no scleral icterus Neck: supple -Heart: Irregular rate and rhythm, Afib Lungs: CTAB, no respiratory distress, no rales/rhonchi, no wheezing Abdomen: soft, non-tender, bowel sounds present -Musculoskeletal: 3+ pitting edema Skin: no rash/lesions -Skin: poor turgor Heme/Lymphatic: no unusual bruising or bleeding, no purpura, no petechia FMR H&P: Results - Labs Result Diagrams: 02/05/20 04:38 02/05/20 04:38 Lab results: WBC 7.8 thou/uL (4.8-10.8) 02/04/20 14:43 Hgb 10.6 g/dL (12.0-16.0) L 02/04/20 14:43 Hct 34.0 % (36.0-47.0) L 02/04/20 14:43 MCV 90.7 fL (78.0-98.0) 02/04/20 14:43 Plt Count 460 thou/uL (130-400) H 02/04/20 14:43 Neutrophils % 75.2 % (42.0-75.0) H 02/04/20 14:43 Sodium 130 mmol/L (136-145) L 02/04/20 14:43 Potassium 3.6 mmol/L (3.5-5.1) 02/04/20 14:43 Chloride 99 mmol/L (98-107) 02/04/20 14:43 Carbon Dioxide 23 mmol/L (23-31) 02/04/20 14:43 BUN 40 mg/dL (9.8-20.1) H 02/04/20 14:43 Creatinine 0.80 mg/dL (0.6-1.1) 02/04/20 14:43 Glucose 126 mg/dL (83-110) H 02/04/20 14:43 Calcium 9.9 mg/dL (7.8-10.44) 02/04/20 14:43 Total Bilirubin 0.4 mg/dL (0.2-1.2) 02/04/20 14:43 AST 23 U/L (5-34) 02/04/20 14:43 ALT Less than 7 U/L (8-55) L 02/04/20 14:43 Alkaline Phosphatase 170 U/L (40-110) H 02/04/20 14:43 Creatine Kinase 14 U/L (29-168) L 02/04/20 15:33 B-Natriuretic Peptide 662.8 pg/mL (0-100) H 02/04/20 15:33 Serum Total Protein 7.4 g/dL (6.0-8.3) 02/04/20 14:43 Albumin 2.7 g/dL (3.4-4.8) L 02/04/20 14:43 Lipase 8 U/L (8-78) 02/04/20 15:33 Urine Ketones Negative mg/dL (Negative) 02/04/20 16:03 Urine Blood Negative (Negative) 02/04/20 16:03 Urine Nitrite Negative (Negative) 02/04/20 16:03 Ur Leukocyte Esterase Negative Sierra/uL (Negative) 02/04/20 16:03 - EKG Interpretation EKG: Afib with rate around [address] changes FMR H&P: A/P - Plan 84 yo female with past medical hx of lewy body dementia, HTN, and Afib who is admitted for physical deconditioning. Physical deconditioning - Case management, PT/OT, speech therapy consults placed - rehab placement per request of son - UTI ruled out with U/A - ACS ruled out with troponins and ECG - Xray showed pulmonary vascular congestion and B/L pleural effusion, concerns for aspiration; received azithro 500 mg in ED - repeat chest xray tomorrow am Lower extremity edema - BNP of 662 - poor urine output with bladder scan showing ~300 - 1 dose of lasix ordered - lungs clear to auscultation bilaterally - will continue to monitor for retention - will consider de la cruz if needed Lewy Body Dementia - continue home med of carb/levo - fall risk precautions placed HTN - continue home meds of losartan/hctz - monitor Afib - continue home med of aspirin and dilt - on tele Anemia - Hgb 10.6 - no signs of acute bleeding Hyponatremia - monitor on AM labs Diet: heart healthy IVF: Maintenance LR at 70 ml/hr PPx: SCDs Code: DNR PCP: Lui Attending: Wild Dispo: admit to tele for observation, expected length of stay less than 48 hours ; awaiting rehab placement FMR H&P: Upper Level - Plan Date/Time: 02/04/201855 I, Yue Charles, have evaluated this patient and agree with findings/plan as outlined by leadership program intern resident. Pertinent changes/additions are listed here. 84 yo F with PMH HTN, dementia, afib, OA presents for generalized weakness. Son present and history obtained from him. Noted overall decrease in functional status and mobility since August. Was previously ambulatory but since August has become nearly bed bound. She lives at home with son, no home health or assistance. Worsening weakness especially over past few days. Decrease PO intake, difficulty swallowing pills, noticeably decreased Uop. He is interested in rehab placement. She frequently complains of pain but is unable to localize or further describe. PE: Gen: resting in bed. A&Ox1 Heart: irregularly irregular, no significant murmur Lungs: slight expiratory wheeze, upper airway squeak Abd: Soft, NT/ND Ext: 3+ pitting edema BLE Physical deconditioning -Gradual progression of generalized weakness. ED tried for direct transfer to [facility] but no beds available, son says he cannot care for her at home. - PT/OT/ST consulted -No signs of infection. Afebrile, WBC normal. Lower extremity edema -Mixed volume status picture with significant LE edema and CXR with pulm vasc congestion and effusions. Hypoalbuminemia could be contributory. Also with hx very poor PO intake and minimal urine output. Bladder scan ~380, given 20 mg IV Lasix to try to mobilize urine, may consider straight cath if continues to not have output. Cr was 0.8. BNP elevated 662, no echo on file. 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 Chronic normocytic anemia - Hgb 10.6, at baseline Continue home medications. Chronic medical problems per leadership program intern note. Dispo: Considering what sounds like worsening dementia and overall functional status over past 6 months, could also be considered for hospice care as unsure if patient would be able to tolerate demands of rehab. She is DNR and son is MPOA. Addendum - Attending - Attending Attestation Date/Time: 02/04/20 0605 I personally evaluated the patient and discussed the management with Dr. Fu I agree with the History, Examination, Assessment and Plan documented above with any addition or exceptions noted below - 84 yo F with h/o HTN, Lewy body dementia, afib, OA presents for generalized weakness. Son present and history obtained from him. Noted overall decrease in functional status and mobility since August. Was previously ambulatory but since August has become nearly bed bound. She lives at home with son, no home health or assistance. Worsening weakness especially over past few days. Decrease PO intake, difficulty swallowing pills, noticeably decreased Uop. Also noted increased lower extremity edema. He is interested in rehab placement. She frequently complains of pain but is unable to localize or further describe. PMH/PSH/Meds/SH reviewed and agree with residents's documentation. Afebrile VSS. Exam repeated by me and agree with resident's findings. Labs: WBC=7.8, H/H=10.6/34, Fy=120, K=3.6, BUN/ Cr=40/0.8, Vzvi=496, alb=2.7, ARZ=039 A/P: 1) Generalized weakness - will have PT/OT evaluation. 2) Pedal edema - no known h/o heart failure; elevated BNP- will check echo. will give small dose of lasix and monitor urine output. 3) Lewy body dementia- stable. .
[2020-02-04] MEDS ORDERED: Lactated Ringer's 1,000 ML IV SCH ×2 (19:15→21:57)
[2020-02-04] MEDS ORDERED: Ondansetron ODT 4 MG TAB SL PRN (21:08)
[2020-02-04] MEDS ORDERED: Ondansetron PF 4 MG/2 ML Vial IVP PRN ×2 (21:08→22:59)
[2020-02-04] MEDS ORDERED: Acetaminophen 325 MG TAB PO PRN (21:08)
[2020-02-04] MEDS ORDERED: Furosemide 20 MG/2 ML VIAL SLOW IVP SCH (22:00)
[2020-02-04] MEDS ORDERED: Ondansetron ODT 4 MG TAB PO PRN (22:59)
[2020-02-04] MEDS ORDERED: Senokot S 8.6-50 MG TAB PO PRN (22:59)
[2020-02-05 05:16] LABS: #Eosinphils 0.1 thou/uL (0.0-0.7); #Monocytes 0.4 thou/uL (0.11-0.59); #Neutrophils 5.6 thou/uL (1.40-6.50); %Basophils 0.5 % (0.0-1.0); %Lymphocytes 13.6 % (21.0-51.0); %Monocytes 5.9 % (0.0-10.0); %Neutrophils 79.1 % (42.0-75.0); Hemoglobin 11.1 g/dL (12.0-16.0); Mean Corpuscular HGB CONC 31.7 g/dL (32.0-36.0); Mean Corpuscular Hemoglobin 28.8 pg (27.0-31.0); Mean Corpuscular Volume 90.6 fL (78.0-98.0); Mean Platelet Volume 7.7 fL (7.4-10.4); Platelet Count 438 thou/uL (130-400); RBC Distribution Width 14.5 % (11.5-14.5); Red Blood Cell (RBC) Count 3.85 mill/uL (4.20-5.40)
[2020-02-05 05:28] LABS: Anion Gap 11 mmol/L (10-20); BUN (Urea Nitrogen) 32 mg/dL (9.8-20.1); Calc. Creatinine Clearance 69 mL/min (70-130); Calcium 9.7 mg/dL (7.8-10.44); Carbon Dioxide 23 mmol/L (23-31); Chloride 100 mmol/L (98-107); Estimated GFR-MDRD 81; Glucose 91 mg/dL (83-110); Potassium 3.2 mmol/L (3.5-5.1); Sodium 131 mmol/L (136-145)
--- NOTE | 2020-02-05 06:46 | PDOC.FM ---
- Subjective Subjective: pt resting comfortably in bed, denies sob or chest pain. AOx1 - Objective Vital Signs & Weight: Vital Signs (12 hours) Temp Pulse Resp BP BP Pulse Ox 02/05/20 05:34 126 H 22 H 126/89 97 02/05/20 03:22 98.3 F 125 H 18 111/71 97 02/05/20 02:10 122 H 28 H 125/56 L 97 02/04/20 23:26 98.7 F 106 H 16 115/62 97 02/04/20 21:10 98.2 F 103 H 28 H 114/68 97 Weight Weight 70.3 kg I&O: 02/03/20 02/04/20 02/05/20 06:59 06:59 06:59 Intake Total 560 Balance 560 Result Diagrams: 02/05/20 04:38 02/05/20 04:38 Phys Exam - Physical Examination Constitutional: NAD HEENT: moist MMs Neck: no JVD Respiratory: clear to auscultation bilateral Cardiovascular: RRR, no significant murmur Gastrointestinal: no distention Musculoskeletal: pulses present, edema present Neurological: moves all 4 limbs Psychiatric: normal affect Skin: no rash Dx/Plan (1) CHF (congestive heart failure) Code(s): I50.9 - HEART FAILURE, UNSPECIFIED Status: Acute (2) A-fib Code(s): I48.91 - UNSPECIFIED ATRIAL FIBRILLATION Status: Acute (3) Hypertension Code(s): I10 - ESSENTIAL (PRIMARY) HYPERTENSION Status: Acute (4) Hypomagnesemia Code(s): E83.42 - HYPOMAGNESEMIA Status: Acute - Plan Plan: CHF exacerbation, suspected - BNP of 662, cxr reveals vascular congestion, SHUBHAM - lasix ivp - echo, tsh, mg, phos pending oliguria - considering above, monitor strict outpt - likely related to poor cardiac output Physical deconditioning - Case management, PT/OT, speech therapy consults placed Lewy Body Dementia - continue home med of carb/levo - fall risk precautions placed HTN - continue home meds of losartan/hctz - monitor Afib - continue home med of aspirin and dilt - on tele Anemia - Hgb 10.6 - no signs of acute bleeding Hyponatremia - monitor on AM labs Diet: heart healthy Code: DNR PCP: Lui Dispo: monitor/eval fluid status and treat, post hospitalization planning Addendum - Attending - Attending Attestation Date/Time: 02/05/20 9968 I personally evaluated the patient and discussed the management with . [] I agree with the History, Examination, Assessment and Plan documented above with any addition or exceptions noted below. replacing electrolytes and restarting home medications. She appears to be mildly fluid overloaded with no history of HF. TTE pending. Will consider cards consultation pending results. Given her advanced age and dementia, I doubt she will be a candidate for any sort of procedure. Will have palliative care see her as well. Family discussion pending results.
[2020-02-05] MEDS ORDERED: Potassium Chloride 20 MEQ TAB PO SCH (07:15)
--- NOTE | 2020-02-05 07:54 | RAD ---
EXAM: Single view of the chest HISTORY: Leg swelling and weakness COMPARISON: 02/04/2020 FINDINGS: Single view of the chest shows an enlarged but stable cardiomediastinal silhouette. Athero sclerotic calcifications are seen in the aorta. There is a small right pleural effusion with adjacent atelectasis versus infiltrate. The bones are unremarkable. IMPRESSION: Stable right pleural effusion with adjacent atelectasis versus infiltrate
[2020-02-05] MEDS: Aspirin Chewable 81 MG TAB PO SCH (08:52)
[2020-02-05] MEDS: Losartan/Hydrochlorothiazide 100 mg/25 mg Tablet PO SCH (08:53)
[2020-02-05] MEDS: Carbidopa/Levodopa 25-100 mg Tablet PO SCH ×3 (08:53→20:50)
[2020-02-05] MEDS ORDERED: Prevnar 13-Val Conj/PF 0.5 ML SYRINGE IM ONE (09:00)
[2020-02-05] MEDS ORDERED: LEVODOPA PO SCH (21:00)
[2020-02-05] MEDS ORDERED: CARBIDOPA PO SCH (21:00)
[2020-02-06 04:51] LABS: #Lymphocytes 0.9 thou/uL (1.20-3.40); #Monocytes 0.5 thou/uL (0.11-0.59); #Neutrophils 7.9 thou/uL (1.40-6.50); %Basophils 0.4 % (0.0-1.0); %Eosinophils 0.4 % (0.0-10.0); %Lymphocytes 9.4 % (21.0-51.0); %Monocytes 5.3 % (0.0-10.0); %Neutrophils 84.5 % (42.0-75.0); Hemoglobin 11.3 g/dL (12.0-16.0); Mean Corpuscular Hemoglobin 29.2 pg (27.0-31.0); Mean Corpuscular Volume 91.4 fL (78.0-98.0); Mean Platelet Volume 7.5 fL (7.4-10.4); Platelet Count 467 thou/uL (130-400); RBC Distribution Width 14.7 % (11.5-14.5); Red Blood Cell (RBC) Count 3.88 mill/uL (4.20-5.40); White Blood Cell (WBC) Count 9.3 thou/uL (4.8-10.8)
[2020-02-06 05:14] LABS: Anion Gap 14 mmol/L (10-20); BUN (Urea Nitrogen) 27 mg/dL (9.8-20.1); Calc. Creatinine Clearance 68 mL/min (70-130); Carbon Dioxide 21 mmol/L (23-31); Chloride 102 mmol/L (98-107); Estimated GFR-MDRD 80; Glucose 91 mg/dL (83-110); Sodium 133 mmol/L (136-145)
--- NOTE | 2020-02-06 07:09 | PDOC.FM ---
- Subjective Subjective: pt resting comfortably in bed, aox1. denies sob, chest pain. - Objective Vital Signs & Weight: Vital Signs (12 hours) Temp Pulse Resp BP Pulse Ox 02/06/20 03:10 98.0 F 109 H 20 121/84 94 L 02/05/20 19:20 98.1 F 110 H 18 114/57 L 95 Weight Weight 70.3 kg I&O: 02/05/20 02/06/20 02/07/20 06:59 06:59 06:59 Intake Total 560 600 Output Total 950 Balance 560 -350 Result Diagrams: 02/06/20 04:28 02/06/20 04:28 Phys Exam - Physical Examination Constitutional: NAD HEENT: moist MMs Neck: supple Respiratory: clear to auscultation bilateral Cardiovascular: no significant murmur, irregular Gastrointestinal: no distention Musculoskeletal: no edema Neurological: moves all 4 limbs Psychiatric: normal affect Skin: no rash Dx/Plan (1) CHF (congestive heart failure) Code(s): I50.9 - HEART FAILURE, UNSPECIFIED Status: Acute (2) A-fib Code(s): I48.91 - UNSPECIFIED ATRIAL FIBRILLATION Status: Acute (3) Hypertension Code(s): I10 - ESSENTIAL (PRIMARY) HYPERTENSION Status: Acute (4) Hypomagnesemia Code(s): E83.42 - HYPOMAGNESEMIA Status: Acute - Plan Plan: CHF exacerbation, suspected - BNP of 662, cxr reveals vascular congestion, SHUBHAM - good uop yesterday - echo pending Physical deconditioning - Case management, PT/OT, speech therapy consults placed Lewy Body Dementia - continue home med of carb/levo - fall risk precautions placed HTN - continue home meds of losartan/hctz - monitor Afib - falling into RVR occasionally - increase cardizem Anemia - Hgb 10.6 - no signs of acute bleeding Hyponatremia - monitor on AM labs Diet: heart healthy Code: DNR PCP: Lui Dispo: monitor/eval fluid status and treat, post hospitalization planning Addendum - Attending - Attending Attestation Date/Time: 02/06/20 1550 I personally evaluated the patient and discussed the management with Dr. Stein. I agree with the History, Examination, Assessment and Plan documented above with any addition or exceptions noted below. Awaiting TTE results. Cardiology consultation pending results. Placement pending. Rate control with PO dilt.
[2020-02-06] MEDS: Aspirin Chewable 81 MG TAB PO SCH (08:51)
[2020-02-06] MEDS: Losartan/Hydrochlorothiazide 100 mg/25 mg Tablet PO SCH (08:51)
[2020-02-06] MEDS: Carbidopa/Levodopa 25-100 mg Tablet PO SCH ×3 (08:51→20:19)
--- NOTE | 2020-02-06 19:17 | CON ---
DATE OF CONSULTATION: 02/06/2020 REASON FOR CONSULTATION: Aortic insufficiency, diastolic congestive heart failure. PRIMARY HAND I THERMAL CUTTER: Dr. Brandyn Zavala. HISTORY OF PRESENT ILLNESS: Ms. Vida Bravo is a pleasant 84-year-old woman. The patient was admitted to the hospital with generalized weakness, edema, and poor urine output. The patient does have a history of dementia. She has been here in the hospital since the . MEDICATIONS: At home, she was taking; 1. Diltiazem 180 mg a day. 2. Losartan and HCT. 3. Aspirin. 4. Acetaminophen if needed. PAST HISTORY: Paroxysmal atrial fibrillation. FAMILY HISTORY: Noncontributory. REVIEW OF SYSTEMS: Really not reliable due to mental status. PHYSICAL EXAMINATION: GENERAL: This is a pleasant, elderly woman, in no distress. VITAL SIGNS: Blood pressure 109/54. Pulse 104, it is atrial fibrillation. LUNGS: Clear. CARDIAC: Irregularly irregular. There is a 2/6 systolic murmur in left mid sternal border. No S3. ABDOMEN: Soft and nontender. EXTREMITIES: Warm, dry. No clubbing or cyanosis. There is moderate edema. DIAGNOSTIC STUDIES: Echocardiogram interpreted by Dr. Quiroga, reveals a severe mitral regurgitation, moderate to severe aortic insufficiency, ejection fraction 55% to 60%. Other laboratory, the BNP is 662. Chest x-ray, right pleural effusion. ASSESSMENT: 1. Diastolic congestive heart. 2. Atrial fibrillation, now persistent. 3. Mitral regurgitation. 4. Aortic insufficiency. PLAN: 1. I reviewed the office notes. Apparently, the patient has had a sinus rhythm as recently as August. Could consider trying to re-establish sinus rhythm, would probably need amiodarone to maintain sinus rhythm. 2. Need to consider anticoagulation. Dr. Zavala will see the patient tomorrow morning .. Job ID: [id number]
[2020-02-07 04:17] LABS: #Eosinphils 0.1 thou/uL (0.0-0.7); #Lymphocytes 0.8 thou/uL (1.20-3.40); #Monocytes 0.6 thou/uL (0.11-0.59); #Neutrophils 6.7 thou/uL (1.40-6.50); %Basophils 0.6 % (0.0-1.0); %Monocytes 6.7 % (0.0-10.0); %Neutrophils 81.7 % (42.0-75.0); Hemoglobin 10.7 g/dL (12.0-16.0); Mean Corpuscular HGB CONC 31.1 g/dL (32.0-36.0); Mean Corpuscular Hemoglobin 28.4 pg (27.0-31.0); Mean Corpuscular Volume 91.3 fL (78.0-98.0); Mean Platelet Volume 7.5 fL (7.4-10.4); Platelet Count 459 thou/uL (130-400); RBC Distribution Width 14.4 % (11.5-14.5); Red Blood Cell (RBC) Count 3.78 mill/uL (4.20-5.40); White Blood Cell (WBC) Count 8.2 thou/uL (4.8-10.8)
[2020-02-07 04:34] LABS: Anion Gap 13 mmol/L (10-20); BUN (Urea Nitrogen) 29 mg/dL (9.8-20.1); Calc. Creatinine Clearance 68 mL/min (70-130); Calcium 9.9 mg/dL (7.8-10.44); Carbon Dioxide 24 mmol/L (23-31); Chloride 102 mmol/L (98-107); Estimated GFR-MDRD 80; Glucose 82 mg/dL (83-110); Potassium 3.6 mmol/L (3.5-5.1); Sodium 135 mmol/L (136-145)
--- NOTE | 2020-02-07 07:20 | PDOC.FM ---
- Subjective Subjective: pt resting comfortably in bed, AOx1, denies pain. - Objective Vital Signs & Weight: Vital Signs (12 hours) Temp Pulse Resp BP Pulse Ox 02/07/20 04:00 97.5 F L 83 24 H 101/60 95 02/06/20 19:15 97.9 F 76 18 113/58 L 95 Weight Weight 55.883 kg I&O: 02/06/20 02/07/20 02/08/20 06:59 06:59 06:59 Intake Total 600 350 Output Total 950 600 Balance -350 -250 Result Diagrams: 02/07/20 03:56 02/07/20 03:56 Phys Exam - Physical Examination Constitutional: NAD HEENT: moist MMs Neck: supple Respiratory: clear to auscultation bilateral Cardiovascular: RRR, no significant murmur Gastrointestinal: no distention Musculoskeletal: no edema Neurological: moves all 4 limbs Psychiatric: normal affect Skin: no rash Dx/Plan (1) CHF (congestive heart failure) Code(s): I50.9 - HEART FAILURE, UNSPECIFIED Status: Acute (2) A-fib Code(s): I48.91 - UNSPECIFIED ATRIAL FIBRILLATION Status: Acute (3) Hypertension Code(s): I10 - ESSENTIAL (PRIMARY) HYPERTENSION Status: Acute (4) Hypomagnesemia Code(s): E83.42 - HYPOMAGNESEMIA Status: Acute - Plan Plan: CHF exacerbation, suspected - BNP of 662, cxr reveals vascular congestion, SHUBHAM - echo reveals dilated L atrium, significant mitral/aortic regurg - diasoltic dysfunction unable to be assessed. Physical deconditioning - Case management, PT/OT, speech therapy consults placed Lewy Body Dementia - continue home med of carb/levo - fall risk precautions placed HTN - continue home meds of losartan/hctz - monitor Afib - rate controlled on higher dose - speak with son (MPOA) in regards to AC - would not recommend d/t fall risk and sig comorbid conditions Anemia - Hgb 10.6 - no signs of acute bleeding Hyponatremia - monitor on AM labs Diet: heart healthy Code: DNR PCP: Lui Dispo: discuss w/ mpoa today regarding further intervention, post dc planning Addendum - Attending - Attending Attestation Date/Time: 02/07/20 1506 I personally evaluated the patient and discussed the management with Dr. Stein. I agree with the History, Examination, Assessment and Plan documented above with any addition or exceptions noted below. Awaiting cards recs. patient has been rate controlled overnight. Will attempt to contact patient's son regarding GOC.
[2020-02-07] MEDS: Carbidopa/Levodopa 25-100 mg Tablet PO SCH ×3 (09:14→21:43)
[2020-02-07] MEDS: Losartan/Hydrochlorothiazide 100 mg/25 mg Tablet PO SCH (09:14)
[2020-02-07] MEDS: Aspirin Chewable 81 MG TAB PO SCH (09:14)
[2020-02-07] MEDS ORDERED: Digoxin 0.5 MG/2 ML AMP SLOW IVP SCH (09:30)
[2020-02-07] MEDS ORDERED: Iopamidol-370 76% 500 ML 1 ML ONE (09:32)
[2020-02-07] MEDS: Digoxin 0.5 MG/2 ML AMP SLOW IVP SCH ×3 (10:20→21:43)
[2020-02-07] MEDS: Metoprolol Tartrate 25 MG TAB PO SCH (21:43)
[2020-02-07] MEDS: Enoxaparin Sodium 60 MG/0.6 ML SYRINGE SC SCH (21:44)
[2020-02-07] MEDS ORDERED: Furosemide 40 MG/4 ML VIAL SLOW IVP SCH (23:30)
--- NOTE | 2020-02-08 01:18 | PDOC.EVN ---
Event Note - Event Note Event Note: Called by the nurse around 1999 for increased oxygen requirements. Pt was previously satting well in the 90s on 2 L of oxygen but began desatting. Nurse turned O2 up to 5L and pt returned to 90. I went to examine the pt. She was tachycardic, but not in any distress. Her O2 sat read 92. I did not see any signs of DVT in her lower extremities, lungs were CTAB. Pt has hx of persistent Afib. Pt did not have her SCDs on at the time. I ordered a STAT Chest Xray, STAT CTA, and therapeutic lovenox. CTA showed B/L PE, B/L pleural effusion, and B/L pneumonia. Will continue therapeutic lovenox. Ordered 40mg IV of lasix. Pt has been afebrile since admission, will continue to monitor clinically. No need for antibiotics at this time.
[2020-02-08 04:47] LABS: Anion Gap 12 mmol/L (10-20); BUN (Urea Nitrogen) 23 mg/dL (9.8-20.1); Calc. Creatinine Clearance 50 mL/min (70-130); Calcium 9.8 mg/dL (7.8-10.44); Carbon Dioxide 26 mmol/L (23-31); Chloride 102 mmol/L (98-107); Estimated GFR-MDRD 84; Glucose 85 mg/dL (83-110); Potassium 3.1 mmol/L (3.5-5.1); Sodium 137 mmol/L (136-145)
[2020-02-08 05:02] LABS: #Eosinphils 0.1 thou/uL (0.0-0.7); #Lymphocytes 0.9 thou/uL (1.20-3.40); #Monocytes 0.5 thou/uL (0.11-0.59); #Neutrophils 6.2 thou/uL (1.40-6.50); %Basophils 0.6 % (0.0-1.0); %Monocytes 5.9 % (0.0-10.0); %Neutrophils 80.6 % (42.0-75.0); Hemoglobin 10.5 g/dL (12.0-16.0); Mean Corpuscular HGB CONC 29.4 g/dL (32.0-36.0); Mean Corpuscular Hemoglobin 27.1 pg (27.0-31.0); Mean Corpuscular Volume 92.2 fL (78.0-98.0); Mean Platelet Volume 7.7 fL (7.4-10.4); Platelet Count 463 thou/uL (130-400); RBC Distribution Width 14.7 % (11.5-14.5); Red Blood Cell (RBC) Count 3.88 mill/uL (4.20-5.40); White Blood Cell (WBC) Count 7.7 thou/uL (4.8-10.8)
--- NOTE | 2020-02-08 06:53 | RAD ---
AP CHEST: Date: 02/07/2020 HISTORY: Shortness of breath and pulmonary edema. FINDINGS/IMPRESSION: There are bilateral effusions. Bibasilar atelectasis due to the effusions. Hazy infiltrates in the up per lobes, better appreciated on CTA of chest. Cardiomegaly and mild vascular congestion. POS: [facility]
--- NOTE | 2020-02-08 07:18 | PDOC.FM ---
- Subjective Subjective: pt resting comfortably in bed, O2 fallen off. denies complaints. AOx1 - Objective Vital Signs & Weight: Vital Signs (12 hours) Temp Pulse Resp BP Pulse Ox 02/08/20 04:00 97.9 F 73 18 140/60 93 L 02/07/20 23:26 97.8 F 91 18 125/83 97 02/07/20 21:43 102 H 02/07/20 20:00 98.5 F 102 H 26 H 130/78 93 L Weight Weight 49.759 kg I&O: 02/07/20 02/08/20 02/09/20 06:59 06:59 06:59 Intake Total 350 200 Output Total 600 2200 Balance -250 -1999 Result Diagrams: 02/08/20 04:04 02/08/20 04:04 Phys Exam - Physical Examination Constitutional: NAD HEENT: moist MMs Neck: no JVD Respiratory: no wheezing, clear to auscultation bilateral Cardiovascular: no significant murmur, irregular Gastrointestinal: soft, non-tender Musculoskeletal: pulses present Neurological: moves all 4 limbs Psychiatric: normal affect Skin: no rash Dx/Plan (1) CHF (congestive heart failure) Code(s): I50.9 - HEART FAILURE, UNSPECIFIED Status: Acute (2) A-fib Code(s): I48.91 - UNSPECIFIED ATRIAL FIBRILLATION Status: Acute (3) Hypertension Code(s): I10 - ESSENTIAL (PRIMARY) HYPERTENSION Status: Acute (4) Hypomagnesemia Code(s): E83.42 - HYPOMAGNESEMIA Status: Acute - Plan Plan: Acute hypoxic resp. failure - likely 2/2 PE, tx lovenox - pt stable on 2L nc - discuss AC w/ MPOA CHF exacerbation, suspected - BNP of 662, cxr reveals vascular congestion, SHUBHAM on admission - echo reveals dilated L atrium, significant mitral/aortic regurg - diasoltic dysfunction unable to be assessed. Physical deconditioning - Case management, PT/OT, speech therapy consults placed Lewy Body Dementia - continue home med of carb/levo - fall risk precautions placed HTN - continue home meds of losartan/hctz - monitor Afib - cardizem, dig, metoprolol, rate controlled Anemia - Hgb 10.6 - no signs of acute bleeding Hyponatremia - monitor on AM labs Diet: heart healthy Code: DNR PCP: Prihoda Dispo: discuss w/ mpoa today regarding further intervention, post dc planning Addendum - Attending - Attending Attestation Date/Time: 02/08/20 3412 I personally evaluated the patient and discussed the management with Dr. Stein. I agree with the History, Examination, Assessment and Plan documented above with any addition or exceptions noted below. PE last night. Will discuss with mPOA regarding anticoagulation vs CV consult for IVC filter placement. Possible d/c to SNF/NH today. CM underway.
--- NOTE | 2020-02-08 08:09 | CT ---
CTA CHEST: Axial tomograms were obtained with multiplanar reconstruction and 3D post processing following an ang io protocol. INDICATION: Shortness of breath. Assess for pulmonary embolus. The exam is limited due to arm placement. The patient was unable to raise arms. FINDINGS: Pulmonary arteries show adequate opacification. There is evidence of pulmonary emboli seen in the ar teries to both upper lobes. These are seen in peripheral segmental level arteries. No other definite embolus identified. There are large bilateral pleural effusions. Dense compressive atelectasis of both lower lobes. There are bilateral patchy infiltrates seen in both upper lobes. Thoracic aorta unremarkable. IMPRESSION: 1. Evidence of small emboli in upper lobe pulmonary arteries bilaterally. 2. Moderate-sized bilateral pleural effusions with dense compressive atelectasis of both lower lobes . 3. Patchy infiltrates seen in both upper lobes consistent with associated pneumonia. Findings related to patient's nurse on [address] [place] at time of dictation. CODE CR POS: ROMEO
[2020-02-08] MEDS: Digoxin 0.125 MG TAB PO SCH (08:36)
[2020-02-08] MEDS: Enoxaparin Sodium 60 MG/0.6 ML SYRINGE SC SCH ×2 (08:36→21:25)
[2020-02-08] MEDS: Carbidopa/Levodopa 25-100 mg Tablet PO SCH ×3 (08:37→21:25)
[2020-02-08] MEDS: Metoprolol Tartrate 25 MG TAB PO SCH (08:37)
[2020-02-08] MEDS: Losartan/Hydrochlorothiazide 100 mg/25 mg Tablet PO SCH (08:37)
[2020-02-08] MEDS: Aspirin Chewable 81 MG TAB PO SCH (08:37)
[2020-02-08] MEDS ORDERED: Potassium Chloride 10 MEQ TAB PO SCH ×2 (09:45→14:00)
--- NOTE | 2020-02-08 09:55 | PDOC.CPN ---
- Subjective Date: 02/08/20 Time: 10:03 Interval history: The pt seen and examined. The pt was found to have bilat PE last night. - Objective Allergies/Adverse Reactions: Allergies Allergy/AdvReac Type Severity Reaction Status Date / Time Penicillins Allergy Verified 05/22/18 05:03 Visit Medications: Current Medications Acetaminophen (Tylenol) 650 mg PO Q4H PRN PRN Reason: Headache/Fever/Mild Pain (1-3) Aspirin (Aspirin Chewable) 81 mg PO QAM [facility] Last Admin: 02/08/20 08:37 Dose: 81 mg Carbidopa/Levodopa (Sinemet 25-100) 1 tab PO TID [facility] Last Admin: 02/08/20 08:37 Dose: 1 tab Digoxin (Lanoxin) 0.125 mg PO QAM [facility] Last Admin: 02/08/20 08:36 Dose: 0.125 mg Diltiazem HCl (Cardizem Cd) 240 mg PO DAILY [facility] Last Admin: 02/08/20 08:36 Dose: 240 mg Enoxaparin Sodium (Lovenox) 55 mg SC 0900,2100 [facility] Last Admin: 02/08/20 08:36 Dose: 55 mg HCTZ/Losartan Potassium (Hyzaar 100/25) 1 tab PO DAILY [facility] Last Admin: 02/08/20 08:37 Dose: 1 tab Metoprolol Tartrate (Lopressor) 25 mg PO BID [facility] Last Admin: 02/08/20 08:37 Dose: 25 mg Ondansetron HCl (Zofran Odt) 4 mg PO Q6H PRN PRN Reason: Nausea/Vomiting Ondansetron HCl (Zofran) 4 mg IVP Q6H PRN PRN Reason: Nausea/Vomiting Potassium Chloride (Klor-Con 10) 20 meq PO 1400 [facility] Stop: 02/08/20 15:00 Potassium Chloride (Klor-Con 10) 20 meq PO NOW [facility] Stop: 02/08/20 12:00 Senna/Docusate Sodium (Senokot S) 2 tab PO BID PRN PRN Reason: Constipation Sodium Chloride (Flush - Normal Saline) 10 ml IVF PRN PRN PRN Reason: Saline Flush Sodium Chloride (Flush - Normal Saline) 10 ml IVF PRN PRN PRN Reason: Saline Flush Vital Signs & Weight: Vital Signs Temp Pulse Resp BP Pulse Ox 02/08/20 08:37 94 L 02/08/20 07:18 97.7 F 83 14 122/57 L 94 L 02/08/20 04:00 97.9 F 73 18 140/60 93 L 02/07/20 23:26 97.8 F 91 18 125/83 97 Weight 109 lb 11.2 oz - Physical Exam General: other (alerts but no situation, time or place) Cardiac: irregularly regular Lungs: decreased breath sounds Extremities: no edema - Labs Result Diagrams: 02/08/20 04:04 02/08/20 04:04 Troponin/CKMB Troponin I 0.019 ng/mL (< 0.028) 02/04/20 15:33 - Telemetry Supraventricular conduction: atrial fibrillation - Assessment/Plan Assessment/Plan: 1. Afib with RVR - well controlled HR with Digoxin, bblocker, Diltiazem, and Lovenox 2. S/p bilat PE - on lovenox BID; on 2L NC 3. Acute on Chronic diastolic HF - stable; Metoprolol tatrate 25mg BID will be changed to Coreg 3.125mg BID for CHF and Afib management 4. severe MR/mod-severe AR - not good candidate for valve replacement due to hx of dementia 5. HTN - stable 6. Hyponatremia - improved 7. hypokalemia - 40 Kcl today 8. Dementia MAR reviewed Code: DNR Pt. seen and eval. by me. I agree with the A/P by the SENIOR GEOTECHNICAL ENGINEER. We have discussed this pt. and I agree with the plan.chito
[2020-02-08] MEDS ORDERED: Carvedilol 3.125 MG TAB PO SCH (10:15)
[2020-02-08] MEDS: Carvedilol 3.125 MG TAB PO SCH (21:25)
[2020-02-09 04:56] LABS: #Eosinphils 0.2 thou/uL (0.0-0.7); #Lymphocytes 1.3 thou/uL (1.20-3.40); #Monocytes 0.5 thou/uL (0.11-0.59); #Neutrophils 5.3 thou/uL (1.40-6.50); %Basophils 0.6 % (0.0-1.0); %Eosinophils 3.2 % (0.0-10.0); %Lymphocytes 17.8 % (21.0-51.0); %Monocytes 6.6 % (0.0-10.0); %Neutrophils 71.8 % (42.0-75.0); Hemoglobin 10.3 g/dL (12.0-16.0); Mean Corpuscular Hemoglobin 27.6 pg (27.0-31.0); Mean Platelet Volume 7.6 fL (7.4-10.4); Platelet Count 442 thou/uL (130-400); RBC Distribution Width 14.5 % (11.5-14.5); Red Blood Cell (RBC) Count 3.74 mill/uL (4.20-5.40); White Blood Cell (WBC) Count 7.4 thou/uL (4.8-10.8)
[2020-02-09 05:04] LABS: Anion Gap 9 mmol/L (10-20); BUN (Urea Nitrogen) 25 mg/dL (9.8-20.1); Calc. Creatinine Clearance 49 mL/min (70-130); Calcium 9.2 mg/dL (7.8-10.44); Carbon Dioxide 29 mmol/L (23-31); Chloride 103 mmol/L (98-107); Estimated GFR-MDRD 83; Glucose 100 mg/dL (83-110); Potassium 3.6 mmol/L (3.5-5.1); Sodium 137 mmol/L (136-145)
--- NOTE | 2020-02-09 07:12 | PDOC.FM ---
- Subjective Subjective: pt resting comfortably in bed, denies sob, tolerating PO, AOx1 - Objective Vital Signs & Weight: Vital Signs (12 hours) Temp Pulse Resp BP Pulse Ox 02/09/20 03:32 98.3 F 82 16 129/57 L 93 L 02/08/20 23:26 94 L 02/08/20 20:00 97.4 F L 62 19 110/55 L 95 Weight Weight 49.804 kg I&O: 02/08/20 02/09/20 02/10/20 06:59 06:59 06:59 Intake Total 200 480 Output Total 2200 250 Balance -1999 230 Result Diagrams: 02/09/20 04:36 02/09/20 04:36 Phys Exam - Physical Examination Constitutional: NAD HEENT: moist MMs Neck: no JVD crackles present Cardiovascular: irregular Gastrointestinal: non-tender Musculoskeletal: pulses present, edema present Neurological: moves all 4 limbs Psychiatric: normal affect Skin: no rash Dx/Plan (1) CHF (congestive heart failure) Code(s): I50.9 - HEART FAILURE, UNSPECIFIED Status: Acute (2) A-fib Code(s): I48.91 - UNSPECIFIED ATRIAL FIBRILLATION Status: Acute (3) Hypertension Code(s): I10 - ESSENTIAL (PRIMARY) HYPERTENSION Status: Acute (4) Hypomagnesemia Code(s): E83.42 - HYPOMAGNESEMIA Status: Acute - Plan Plan: Acute hypoxic resp. failure - likely 2/2 PE, tx lovenox - pt stable on 2L nc - spoke with MPOA yesterday, will be deciding about intermediate card tender AC CHF exacerbation, suspected - BNP of 662, cxr reveals vascular congestion, SHUBHAM on admission - echo reveals dilated L atrium, significant mitral/aortic regurg - diasoltic dysfunction unable to be assessed. - wet on exam today, 20ivp lasix today, begin PO tomorrow Physical deconditioning - Case management, PT/OT, speech therapy consults placed Lewy Body Dementia - continue home med of carb/levo - fall risk precautions placed HTN - continue home meds of losartan/hctz - monitor Afib - cardizem, dig, metoprolol, rate controlled Anemia - Hgb 10.6 - no signs of acute bleeding Hyponatremia - monitor on AM labs Diet: heart healthy Code: DNR PCP: Prihoda Dispo: stable for dc pending approval Addendum - Attending - Attending Attestation Date/Time: 02/09/20 4832 I personally evaluated the patient and discussed the management with Dr. Stein. I agree with the History, Examination, Assessment and Plan documented above with any addition or exceptions noted below. her O2 requirement has been increasing. Will give a small dose of lasix today. Discussing with her family regarding anticoagulation. Will repeat CXR. Lungs sound wet on exam. F/U later today and consider repeat dose of lasix if no improvement in O2 requirement. may need to be on maintenance lasix.
[2020-02-09] MEDS: Losartan/Hydrochlorothiazide 100 mg/25 mg Tablet PO SCH (08:28)
[2020-02-09] MEDS: Enoxaparin Sodium 60 MG/0.6 ML SYRINGE SC SCH ×2 (08:29→20:41)
[2020-02-09] MEDS: Aspirin Chewable 81 MG TAB PO SCH (08:29)
[2020-02-09] MEDS: Carvedilol 3.125 MG TAB PO SCH ×2 (08:29→20:42)
[2020-02-09] MEDS: Digoxin 0.125 MG TAB PO SCH (08:29)
[2020-02-09] MEDS: Carbidopa/Levodopa 25-100 mg Tablet PO SCH ×3 (08:29→20:42)
[2020-02-09] MEDS ORDERED: Furosemide 20 MG/2 ML VIAL SLOW IVP SCH (09:00)
--- NOTE | 2020-02-09 13:48 | RAD ---
EXAM: Single view of the chest HISTORY: Increased oxygen requirement COMPARISON: 02/07/2020 FINDINGS: Single view of the chest shows an enlarged but stable cardiomediastinal silhouette. Bilate ral perihilar opacities are seen. Multifocal airspace opacities are seen in the lungs. There may also be bilateral pleural effusions. The bones are unremarkable IMPRESSION: 1. Cardiomegaly and bilateral pleural effusions 2. Multifocal infiltrates versus pulmonary edema.
--- NOTE | 2020-02-09 23:41 | PDOC.CPN ---
- Subjective Date: 02/09/20 Time: 12:00 - Review of Systems ROS unobtainable: due to mental status - Objective Allergies/Adverse Reactions: Allergies Allergy/AdvReac Type Severity Reaction Status Date / Time Penicillins Allergy Verified 05/22/18 05:03 Visit Medications: Current Medications Acetaminophen (Tylenol) 650 mg PO Q4H PRN PRN Reason: Headache/Fever/Mild Pain (1-3) Aspirin (Aspirin Chewable) 81 mg PO QAM [facility] Last Admin: 02/09/20 08:29 Dose: 81 mg Carbidopa/Levodopa (Sinemet 25-100) 1 tab PO TID [facility] Last Admin: 02/09/20 20:42 Dose: 1 tab Carvedilol (Coreg) 3.125 mg PO BID [facility] Last Admin: 02/09/20 20:42 Dose: 3.125 mg Digoxin (Lanoxin) 0.125 mg PO QAM [facility] Last Admin: 02/09/20 08:29 Dose: 0.125 mg Diltiazem HCl (Cardizem Cd) 240 mg PO DAILY [facility] Last Admin: 02/09/20 08:29 Dose: 240 mg Enoxaparin Sodium (Lovenox) 55 mg SC 0900,2100 [facility] Last Admin: 02/09/20 20:41 Dose: 55 mg Furosemide (Lasix) 20 mg PO DAILY [facility] HCTZ/Losartan Potassium (Hyzaar 100/25) 1 tab PO DAILY [facility] Last Admin: 02/09/20 08:28 Dose: 1 tab Ondansetron HCl (Zofran Odt) 4 mg PO Q6H PRN PRN Reason: Nausea/Vomiting Ondansetron HCl (Zofran) 4 mg IVP Q6H PRN PRN Reason: Nausea/Vomiting Senna/Docusate Sodium (Senokot S) 2 tab PO BID PRN PRN Reason: Constipation Sodium Chloride (Flush - Normal Saline) 10 ml IVF PRN PRN PRN Reason: Saline Flush Last Admin: 02/09/20 20:42 Dose: 10 ml Sodium Chloride (Flush - Normal Saline) 10 ml IVF PRN PRN PRN Reason: Saline Flush Vital Signs & Weight: Vital Signs Temp Pulse Resp BP Pulse Ox 02/09/20 19:25 98.6 F 57 L 22 H 121/58 L 95 02/09/20 15:50 97.5 F L 54 L 14 108/54 L 92 L Weight 109 lb 12.8 oz - Quality Measures Condition: Atrial Fibrillation/Flutter (hx or current) - Physical Exam General: no apparent distress Neck: supple neck Cardiac: irregularly regular (irreg/irreg. Atrial fib. on the monitor.) Lungs: decreased breath sounds Abdomen: unremarkable Extremities: no edema - Labs Result Diagrams: 02/09/20 04:36 02/09/20 04:36 Troponin/CKMB Troponin I 0.019 ng/mL (< 0.028) 02/04/20 15:33 - Assessment/Plan Assessment/Plan: 1. Afib with RVR - well controlled HR with Digoxin, bblocker, Diltiazem, and Lovenox 2. S/p bilat PE - on lovenox BID; on 2L NC 3. Acute on Chronic diastolic HF - stable; Metoprolol tatrate 25mg BID will be changed to Coreg 3.125mg BID for CHF and Afib management 4. severe MR/mod-severe AR - not good candidate for valve replacement due to hx of dementia 5. HTN - stable 6. Hyponatremia - improved 7. hypokalemia - 40 Kcl today 8. Dementia MAR reviewed Code: DNR
[2020-02-10 04:07] LABS: #Basophils 0.1 thou/uL (0.0-0.2); #Eosinphils 0.2 thou/uL (0.0-0.7); #Lymphocytes 1.1 thou/uL (1.20-3.40); #Monocytes 0.4 thou/uL (0.11-0.59); #Neutrophils 3.6 thou/uL (1.40-6.50); %Eosinophils 4.6 % (0.0-10.0); %Lymphocytes 20.1 % (21.0-51.0); %Monocytes 7.2 % (0.0-10.0); %Neutrophils 67.1 % (42.0-75.0); Hemoglobin 11.1 g/dL (12.0-16.0); Mean Corpuscular HGB CONC 30.7 g/dL (32.0-36.0); Mean Corpuscular Hemoglobin 28.2 pg (27.0-31.0); Mean Corpuscular Volume 91.9 fL (78.0-98.0); Mean Platelet Volume 7.7 fL (7.4-10.4); Platelet Count 437 thou/uL (130-400); RBC Distribution Width 14.5 % (11.5-14.5); Red Blood Cell (RBC) Count 3.94 mill/uL (4.20-5.40); White Blood Cell (WBC) Count 5.4 thou/uL (4.8-10.8)
[2020-02-10 04:39] LABS: Anion Gap 10 mmol/L (10-20); BUN (Urea Nitrogen) 22 mg/dL (9.8-20.1); Calc. Creatinine Clearance 52 mL/min (70-130); Calcium 9.2 mg/dL (7.8-10.44); Carbon Dioxide 29 mmol/L (23-31); Chloride 100 mmol/L (98-107); Estimated GFR-MDRD 89; Glucose 90 mg/dL (83-110); Potassium 3.5 mmol/L (3.5-5.1); Sodium 135 mmol/L (136-145)
--- NOTE | 2020-02-10 05:46 | PDOC.FM ---
- Subjective Subjective: Ms. Bravo has no complaints this morning. She had a slight cough while I was in the room which dissipated after drinking water. She denies CP, SOB, headache , or nausea. - Objective Vital Signs & Weight: Vital Signs (12 hours) Temp Pulse Resp BP Pulse Ox 02/10/20 03:55 98.0 F 69 19 133/62 97 02/09/20 19:25 98.6 F 57 L 22 H 121/58 L 95 Weight Weight 47.99 kg I&O: 02/08/20 02/09/20 02/10/20 06:59 06:59 06:59 Intake Total 200 480 510 Output Total 2200 250 700 Balance -1999 230 -190 Result Diagrams: 02/10/20 03:39 02/10/20 03:39 EKG Reviewed by me: Yes (tele: Afib 60s, 3 sec pause) Phys Exam - Physical Examination Constitutional: NAD HEENT: PERRLA, moist MMs, sclera anicteric Neck: full ROM diffuse mild crackles Cardiovascular: no significant murmur, no rub irregular rhythm Gastrointestinal: soft, non-tender, no distention, positive bowel sounds Musculoskeletal: no edema, pulses present Neurological: moves all 4 limbs Psychiatric: normal affect Dx/Plan - Plan Plan: Acute hypoxic resp. failure - likely 2/2 PE, tx lovenox - pt stable on 2L nc - spoke with MPOA yesterday, will be deciding about [facility] AC CHF exacerbation, suspected - BNP 662 -> 1708 - repeat CXR improved - Cxr upon admission revealed vascular congestion - SHUBHAM on admission - improved - echo reveals dilated L atrium, significant mitral/aortic regurg - diasoltic dysfunction unable to be assessed. - 20ivp lasix given yesterday, PO lasix started Physical deconditioning - Case management, PT/OT, speech therapy consults placed Lewy Body Dementia - continue home med of carb/levo - fall risk precautions placed HTN - continue home meds of losartan/hctz - monitor Afib - cardizem, dig, metoprolol, rate controlled Anemia - Hgb 10.6 - no signs of acute bleeding Hyponatremia - monitor on AM labs Diet: heart healthy Code: DNR PCP: Lui Dispo: stable for dc pending approval
[2020-02-10] MEDS: Aspirin Chewable 81 MG TAB PO SCH (07:57)
[2020-02-10] MEDS: Acetaminophen 325 MG TAB PO PRN (07:57)
[2020-02-10] MEDS: Digoxin 0.125 MG TAB PO SCH (07:58)
[2020-02-10] MEDS: Losartan/Hydrochlorothiazide 100 mg/25 mg Tablet PO SCH (07:59)
[2020-02-10] MEDS: Carbidopa/Levodopa 25-100 mg Tablet PO SCH ×3 (08:00→21:17)
[2020-02-10] MEDS: Enoxaparin Sodium 60 MG/0.6 ML SYRINGE SC SCH ×2 (08:00→21:17)
[2020-02-10] MEDS: Furosemide 20 MG TAB PO SCH (08:01)
[2020-02-10] MEDS: Carvedilol 3.125 MG TAB PO SCH (10:27)
[2020-02-10] MEDS ORDERED: Dextrose 5% in Water 1,000 ML IV PRN (13:53)
[2020-02-10] MEDS ORDERED: Dextrose 50% Abboject 50 ML SYRINGE SLOW IVP PRN (13:53)
[2020-02-10] MEDS ORDERED: HumaLOG 300 UNITS/3 ML VIAL SC PRN (13:53)
--- NOTE | 2020-02-10 18:15 | PRG ---
DATE OF SERVICE: 02/10/2020 Please see note from Dr. Ca for which I agree. Basically here because she ran out of her anticoagulants, Eliquis, and had a DVT formed in her left upper extremity, although it sounds like maybe lower extremity as well. 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 No more respiratory issues and really just trying to find her placement and help her to be compliant with the medications as clearly in just a few days off the Eliquis, she develops clots again. Otherwise, cardiac-ise, things are stable. Job ID: [id number]
--- NOTE | 2020-02-10 18:46 | PRG ---
DATE OF SERVICE: 02/10/2020 Please see a note from Dr. Ca for which I agree. No major changes. We are basically awaiting on SNF placement. Somewhat she is stable on digoxin and metoprolol as far as rate. No other complaints or issues noted and really just waiting on a bed placement. Job ID: [id number]
[2020-02-11 04:14] LABS: #Eosinphils 0.2 thou/uL (0.0-0.7); #Lymphocytes 1.1 thou/uL (1.20-3.40); #Monocytes 0.4 thou/uL (0.11-0.59); #Neutrophils 4.6 thou/uL (1.40-6.50); %Basophils 0.6 % (0.0-1.0); %Eosinophils 3.2 % (0.0-10.0); %Lymphocytes 17.5 % (21.0-51.0); %Monocytes 5.7 % (0.0-10.0); Hemoglobin 11.6 g/dL (12.0-16.0); Mean Corpuscular HGB CONC 31.4 g/dL (32.0-36.0); Mean Corpuscular Hemoglobin 28.6 pg (27.0-31.0); Mean Corpuscular Volume 91.3 fL (78.0-98.0); Platelet Count 438 thou/uL (130-400); RBC Distribution Width 14.4 % (11.5-14.5); Red Blood Cell (RBC) Count 4.04 mill/uL (4.20-5.40); White Blood Cell (WBC) Count 6.3 thou/uL (4.8-10.8)
[2020-02-11 04:33] LABS: Anion Gap 10 mmol/L (10-20); BUN (Urea Nitrogen) 19 mg/dL (9.8-20.1); Calc. Creatinine Clearance 49 mL/min (70-130); Calcium 9.3 mg/dL (7.8-10.44); Carbon Dioxide 31 mmol/L (23-31); Chloride 98 mmol/L (98-107); Estimated GFR-MDRD 86; Glucose 92 mg/dL (83-110); Potassium 3.1 mmol/L (3.5-5.1); Sodium 136 mmol/L (136-145)
--- NOTE | 2020-02-11 05:59 | PDOC.FM ---
- Subjective Subjective: Ms. Bravo has no complaints this morning. She says she is feeling well and is eager to leave the hospital. - Objective Vital Signs & Weight: Vital Signs (12 hours) Temp Pulse Resp BP Pulse Ox 02/11/20 03:55 98.2 F 76 15 126/53 L 95 02/11/20 00:32 58 L 14 96 02/10/20 23:43 71 02/10/20 19:58 98.4 F 59 L 22 H 116/55 L 96 02/10/20 18:45 62 14 97 Weight Weight 50.712 kg I&O: 02/09/20 02/10/20 02/11/20 06:59 06:59 06:59 Intake Total 480 510 540 Output Total 250 700 850 Balance 230 -190 -310 Result Diagrams: 02/11/20 03:47 02/11/20 03:47 EKG Reviewed by me: Yes (tele: Afib, mostly 70s - dropped to 40s 2-3 times) Phys Exam - Physical Examination Constitutional: NAD HEENT: PERRLA, moist MMs, sclera anicteric Neck: full ROM mild crackles lower lobes bilaterally Cardiovascular: no significant murmur, no rub irregular rhythm Gastrointestinal: soft, non-tender, no distention, positive bowel sounds Musculoskeletal: no edema, pulses present Neurological: moves all 4 limbs Psychiatric: normal affect Deviation from normal: A&O x2 Dx/Plan - Plan Plan: Acute hypoxic resp. failure - likely 2/2 PE, tx lovenox - pt stable on RA - spoke with [facility] yesterday, agreed to [facility] anticoagulation - switch patient to oral eliquis today CHF exacerbation, suspected - BNP 662 -> 1708 - Cxr upon admission revealed vascular congestion - repeat CXR improved - SHUBHAM on admission - improved - echo reveals dilated L atrium, significant mitral/aortic regurg - diasoltic dysfunction unable to be assessed. - PO lasix Hypokalemia - Likely due to starting PO lasix - Will replete Physical deconditioning - Case management, PT/OT, speech therapy consults placed Lewy Body Dementia - continue home med of carb/levo - During our discussion yesterday, son asked about the possibility of increasing medication. This can be done outpatient. - fall risk precautions placed HTN - continue home meds of losartan/hctz - monitor Afib - Had a few episodes of HR in 40s yesterday. Decreased cardizem. - cardizem, dig, metoprolol, rate controlled Anemia - Hgb 10.6 - no signs of acute bleeding Hyponatremia - monitor on AM labs Diet: heart healthy Code: DNR PCP: Lui Dispo: stable for dc pending approval
[2020-02-11] MEDS: Potassium Chloride 20 MEQ TAB PO SCH ×2 (09:10→16:25)
[2020-02-11] MEDS: Carvedilol 3.125 MG TAB PO SCH ×2 (09:11→21:56)
[2020-02-11] MEDS: Aspirin Chewable 81 MG TAB PO SCH (09:11)
[2020-02-11] MEDS: Digoxin 0.125 MG TAB PO SCH (09:11)
[2020-02-11] MEDS: Furosemide 20 MG TAB PO SCH (09:12)
[2020-02-11] MEDS: Losartan/Hydrochlorothiazide 100 mg/25 mg Tablet PO SCH (09:12)
[2020-02-11] MEDS: Apixaban 5 MG TAB PO SCH ×2 (09:12→21:56)
[2020-02-11] MEDS: Carbidopa/Levodopa 25-100 mg Tablet PO SCH ×3 (09:12→21:56)
--- NOTE | 2020-02-11 10:48 | PRG ---
DATE OF SERVICE: 02/11/2020 Please see note from Dr. Abelino Hernandez, for which I agree. The patient is doing fairly well after her pulmonary embolism. Pulse rate had dropped in the 40s, so diltiazem was lowered, but fairly asymptomatic. [facility]ady is currently on board for long-term anticoagulation, at least 6 months, she will need for the DVD. Probably then would switch back to aspirin for atrial fibrillation. The congestive heart failure with diastolic dysfunction seems fairly stable, not that much edema. At this point in time, I am continuing medicines while we are awaiting on placement as she otherwise is medically cleared and stable. Job ID: [id number]
[2020-02-12 04:35] LABS: #Eosinphils 0.2 thou/uL (0.0-0.7); #Lymphocytes 0.9 thou/uL (1.20-3.40); #Monocytes 0.4 thou/uL (0.11-0.59); #Neutrophils 5.9 thou/uL (1.40-6.50); %Basophils 0.1 % (0.0-1.0); %Eosinophils 2.1 % (0.0-10.0); %Monocytes 5.1 % (0.0-10.0); %Neutrophils 80.7 % (42.0-75.0); Hemoglobin 11.1 g/dL (12.0-16.0); Mean Corpuscular HGB CONC 29.7 g/dL (32.0-36.0); Mean Corpuscular Hemoglobin 27.2 pg (27.0-31.0); Mean Corpuscular Volume 91.5 fL (78.0-98.0); Mean Platelet Volume 7.8 fL (7.4-10.4); Platelet Count 423 thou/uL (130-400); RBC Distribution Width 14.4 % (11.5-14.5); Red Blood Cell (RBC) Count 4.08 mill/uL (4.20-5.40); White Blood Cell (WBC) Count 7.3 thou/uL (4.8-10.8)
[2020-02-12 05:11] VITALS: BMI 19.5
[2020-02-12 05:16] LABS: Anion Gap 8 mmol/L (10-20); BUN (Urea Nitrogen) 16 mg/dL (9.8-20.1); Calc. Creatinine Clearance 52 mL/min (70-130); Calcium 9.3 mg/dL (7.8-10.44); Carbon Dioxide 32 mmol/L (23-31); Chloride 98 mmol/L (98-107); Estimated GFR-MDRD 87; Glucose 106 mg/dL (83-110); Potassium 4.1 mmol/L (3.5-5.1); Sodium 134 mmol/L (136-145)
--- NOTE | 2020-02-12 06:15 | PDOC.FM ---
- Subjective Subjective: Pt eating breakfast at bedside today. Doing well. No complaints. Not on NC. - Objective Vital Signs & Weight: Vital Signs (12 hours) Temp Pulse Resp BP Pulse Ox 02/12/20 04:00 97.6 F 78 16 142/62 H 98 02/12/20 00:35 64 14 96 02/11/20 20:32 98.8 F 84 18 116/59 L 94 L 02/11/20 18:45 81 14 95 Weight Weight 50.077 kg I&O: 02/10/20 02/11/20 02/12/20 06:59 06:59 06:59 Intake Total 510 540 490 Output Total 426 507 0668 Balance -344 -803 -998 Result Diagrams: 02/12/20 08:56 02/12/20 08:56 Phys Exam - Physical Examination Constitutional: NAD HEENT: PERRLA Respiratory: no wheezing, no rales, no rhonchi, clear to auscultation bilateral Cardiovascular: RRR, no significant murmur Gastrointestinal: soft, non-tender, no distention, positive bowel sounds Musculoskeletal: no edema, pulses present Psychiatric: normal affect Skin: no rash, normal turgor, cap refill <2 seconds Dx/Plan - Plan Plan: 84 y/o F with PMhx of Lewy Body Dimentia and Afib presented with acute hypoxic resp. failure. Acute hypoxic resp. failure - CTA on admission showed small bilateral PE, bilateral pleural effusions, patchy infiltrates - not on NC - spoke with MPOA, agreed to superintendent container terminal anticoagulation - oral eliquis 10mg BID x 5 days, then 5mg BID CHF exacerbation, suspected - BNP 662 -> 1708 - Cxr upon admission revealed vascular congestion - repeat CXR improved - SHUBHAM on admission - improved - echo reveals dilated L atrium, significant mitral/aortic regurg - diasoltic dysfunction unable to be assessed. - PO lasix 20mg Hypokalemia - K = 4.1 - Likely due to starting PO lasix Physical deconditioning - Case management, PT/OT, speech therapy consults placed Lewy Body Dementia - continue home med of carb/levo - son asked about the possibility of increasing medication. This can be done outpatient. - fall risk precautions placed HTN - continue home meds of losartan/hctz Afib - cardizem, dig, metoprolol, rate controlled Anemia - H/H 11.1/37.3 - no signs of acute bleeding Hyponatremi - Na = 134 - monitor on AM labs VTE PPX: on eliquis Diet: heart healthy Code: DNR PCP: Lui Dispo: stable for dc pending approval of placement to SNF. Addendum - Attending - Attending Attestation Date/Time: 02/12/20 7174 I personally evaluated the patient and discussed the management with Dr. Choi. I agree with the History, Examination, Assessment and Plan documented above with any addition or exceptions noted below. Patient overall stable. Awaiting placement.
[2020-02-12] MEDS: Digoxin 0.125 MG TAB PO SCH (08:55)
[2020-02-12] MEDS: Potassium Chloride 20 MEQ TAB PO SCH ×2 (08:55→17:10)
[2020-02-12] MEDS: Losartan/Hydrochlorothiazide 100 mg/25 mg Tablet PO SCH (08:55)
[2020-02-12] MEDS: Carvedilol 3.125 MG TAB PO SCH ×2 (09:00→20:51)
[2020-02-12] MEDS: Carbidopa/Levodopa 25-100 mg Tablet PO SCH ×3 (09:00→20:51)
[2020-02-12] MEDS: Apixaban 5 MG TAB PO SCH ×2 (09:00→20:51)
[2020-02-12] MEDS: Aspirin Chewable 81 MG TAB PO SCH (09:00)
[2020-02-12] MEDS: Furosemide 20 MG TAB PO SCH (09:01)
[2020-02-12 09:24] LABS: Platelet Count 433 thou/uL (130-400)
[2020-02-12 09:40] LABS: Calc. Creatinine Clearance 55 mL/min (70-130); Estimated GFR-MDRD Greater than 90
--- NOTE | 2020-02-12 12:08 | PDOC.CPN ---
- Subjective Date: 02/12/20 Time: 08:30 Interval history: The pt seen and examined. No overnight events. No cardiac complaints. - Objective Allergies/Adverse Reactions: Allergies Allergy/AdvReac Type Severity Reaction Status Date / Time Penicillins Allergy Verified 05/22/18 05:03 Visit Medications: Current Medications Acetaminophen (Tylenol) 650 mg PO Q4H PRN PRN Reason: Headache/Fever/Mild Pain (1-3) Last Admin: 02/10/20 07:57 Dose: 650 mg Albuterol/Ipratropium (Duoneb) 3 ml NEB [id number] [facility] Last Admin: 02/12/20 07:11 Dose: 3 ml Apixaban (Eliquis) 10 mg PO BID [facility] Stop: 02/17/20 21:01 Last Admin: 02/12/20 09:00 Dose: 10 mg Apixaban (Eliquis) 5 mg PO BID [facility] Aspirin (Aspirin Chewable) 81 mg PO QAM [facility] Last Admin: 02/12/20 09:00 Dose: 81 mg Carbidopa/Levodopa (Sinemet 25-100) 1 tab PO TID [facility] Last Admin: 02/12/20 09:00 Dose: 1 tab Carvedilol (Coreg) 3.125 mg PO BID [facility] Last Admin: 02/12/20 09:00 Dose: 3.125 mg Digoxin (Lanoxin) 0.125 mg PO QAM [facility] Last Admin: 02/12/20 08:55 Dose: 0.125 mg Diltiazem HCl (Cardizem Cd) 180 mg PO DAILY [facility] Last Admin: 02/12/20 09:00 Dose: 180 mg Furosemide (Lasix) 20 mg PO DAILY [facility] Last Admin: 02/12/20 09:01 Dose: 20 mg HCTZ/Losartan Potassium (Hyzaar 100/25) 1 tab PO DAILY [facility] Last Admin: 02/12/20 08:55 Dose: 1 tab Ondansetron HCl (Zofran Odt) 4 mg PO Q6H PRN PRN Reason: Nausea/Vomiting Ondansetron HCl (Zofran) 4 mg IVP Q6H PRN PRN Reason: Nausea/Vomiting Potassium Chloride (K-Dur) 40 meq PO BID[facility] Last Admin: 02/12/20 08:55 Dose: 40 meq Senna/Docusate Sodium (Senokot S) 2 tab PO BID PRN PRN Reason: Constipation Sodium Chloride (Flush - Normal Saline) 10 ml IVF PRN PRN PRN Reason: Saline Flush Last Admin: 02/11/20 21:56 Dose: 10 ml Sodium Chloride (Flush - Normal Saline) 10 ml IVF PRN PRN PRN Reason: Saline Flush Vital Signs & Weight: Vital Signs Temp Pulse Resp BP Pulse Ox 02/12/20 11:02 98.8 F 83 18 125/60 95 02/12/20 09:05 93 L 02/12/20 08:55 97.9 F 86 16 127/62 93 L 02/12/20 07:11 70 16 100 02/12/20 04:00 97.6 F 78 16 142/62 H 98 02/12/20 00:35 64 14 96 Weight 110 lb 6.4 oz - Quality Measures Condition: Atrial Fibrillation/Flutter (hx or current) - Physical Exam General: other (confused) Cardiac: irregularly regular Lungs: decreased breath sounds Extremities: no edema - Labs Result Diagrams: 02/12/20 08:56 02/12/20 08:56 Troponin/CKMB Troponin I 0.019 ng/mL (< 0.028) 02/04/20 15:33 - Telemetry Supraventricular conduction: atrial fibrillation - Assessment/Plan Assessment/Plan: 1. Afib with RVR - well controlled HR with Digoxin, bblocker, Diltiazem, and Lovenox 2. S/p bilat PE - On Eliquis BID; on RA 3. Acute on Chronic diastolic HF - stable; Metoprolol tatrate 25mg BID will be changed to Coreg 3.125mg BID for CHF and Afib management 4. severe MR/mod-severe AR - not good candidate for valve replacement due to hx of dementia 5. HTN - stable 6. Hyponatremia - improved 7. hypokalemia - 40 Kcl today 8. Dementia MAR reviewed Code: DNR I agree with the A/P by the CARD STRIPPER. From a cardiac standpoiny she is stable. I will sign off, Continue rate control of the atrial fibrillation. chito
[2020-02-12] MEDS: Acetaminophen 325 MG TAB PO PRN (20:51)
[2020-02-13 04:46] LABS: #Eosinphils 0.1 thou/uL (0.0-0.7); #Lymphocytes 1.1 thou/uL (1.20-3.40); #Monocytes 0.4 thou/uL (0.11-0.59); #Neutrophils 5.8 thou/uL (1.40-6.50); %Basophils 0.4 % (0.0-1.0); %Eosinophils 1.4 % (0.0-10.0); %Lymphocytes 15.2 % (21.0-51.0); %Monocytes 5.2 % (0.0-10.0); %Neutrophils 77.8 % (42.0-75.0); Hemoglobin 10.8 g/dL (12.0-16.0); Mean Corpuscular HGB CONC 30.1 g/dL (32.0-36.0); Mean Corpuscular Hemoglobin 27.6 pg (27.0-31.0); Mean Corpuscular Volume 91.6 fL (78.0-98.0); Mean Platelet Volume 7.9 fL (7.4-10.4); Platelet Count 398 thou/uL (130-400); RBC Distribution Width 14.6 % (11.5-14.5); Red Blood Cell (RBC) Count 3.91 mill/uL (4.20-5.40); White Blood Cell (WBC) Count 7.4 thou/uL (4.8-10.8)
[2020-02-13 05:11] LABS: Anion Gap 7 mmol/L (10-20); BUN (Urea Nitrogen) 18 mg/dL (9.8-20.1); Calc. Creatinine Clearance 49 mL/min (70-130); Calcium 9.3 mg/dL (7.8-10.44); Carbon Dioxide 31 mmol/L (23-31); Chloride 98 mmol/L (98-107); Estimated GFR-MDRD 81; Glucose 91 mg/dL (83-110); Potassium 4.4 mmol/L (3.5-5.1); Sodium 132 mmol/L (136-145)
--- NOTE | 2020-02-13 05:57 | PDOC.FM ---
- Subjective Subjective: Pt resting comfortably in bed. Had no complaints overnight, or events overnight. - Objective Vital Signs & Weight: Vital Signs (12 hours) Temp Pulse Resp BP Pulse Ox 02/13/20 03:43 97.7 F 83 18 131/55 L 93 L 02/13/20 00:42 67 18 94 L 02/12/20 20:00 98.6 F 84 18 128/58 L 93 L 02/12/20 18:21 72 14 93 L Weight Weight 49.26 kg I&O: 02/11/20 02/12/20 02/13/20 06:59 06:59 06:59 Intake Total 540 520 460 Output Total 850 1100 1050 Balance -310 -580 -590 Result Diagrams: 02/13/20 04:22 02/13/20 04:22 Phys Exam - Physical Examination Constitutional: NAD HEENT: PERRLA, moist MMs Respiratory: no wheezing, no rales, no rhonchi, clear to auscultation bilateral Cardiovascular: RRR, no significant murmur, no rub Gastrointestinal: soft, non-tender, no distention, positive bowel sounds Musculoskeletal: no edema, pulses present Dx/Plan - Plan Plan: 84 y/o F with PMhx of Lewy Body Dimentia and Afib presented with acute hypoxic resp. failure. ##Acute hypoxic resp. failure - CTA on admission showed small bilateral PE, bilateral pleural effusions, patchy infiltrates - oral eliquis 10mg BID x 7 days, until 02/16, then 5mg BID after - not on NC ##CHF exacerbation, suspected - BNP 662 -> 1708 - Cxr upon admission revealed vascular congestion - repeat CXR improved - SHUBHAM on admission - improved - echo reveals dilated L atrium, significant mitral/aortic regurg - diasoltic dysfunction unable to be assessed. - PO lasix 20mg ##Hypokalemia, resolved - K = 4.1--4.4 - Likely due to starting PO lasix ##Physical deconditioning - Case management, PT/OT, speech therapy consults placed ##Lewy Body Dementia - continue home med of carb/levo - son asked about the possibility of increasing medication. This can be done outpatient. - fall risk precautions placed ##HTN - continue home meds of losartan/hctz ##Afib - cardizem, dig, metoprolol, rate controlled ##Anemia - H/H 11.1/37.3-->10.8/35.9 - no signs of acute bleeding ##Hyponatremia - Na = 134-->132 - monitor on AM labs VTE PPX: on eliquis Diet: HH Code: DNR PCP: Lui Dispo: stable for dc pending approval of placement to SNF. Addendum - Attending - Attending Attestation Date/Time: 02/13/20 [id number] I personally evaluated the patient and discussed the management with Dr. Choi. I agree with the History, Examination, Assessment and Plan documented above with any addition or exceptions noted below. Patient stable. Needs to increase PO intake. Stable for discharge once accepted by facility.
[2020-02-13] MEDS: Potassium Chloride 20 MEQ TAB PO SCH (10:21)
[2020-02-13] MEDS: Digoxin 0.125 MG TAB PO SCH (10:22)
[2020-02-13] MEDS: Aspirin Chewable 81 MG TAB PO SCH (10:22)
[2020-02-13] MEDS: Apixaban 5 MG TAB PO SCH (10:22)
[2020-02-13] MEDS: Losartan/Hydrochlorothiazide 100 mg/25 mg Tablet PO SCH (10:23)
[2020-02-13] MEDS: Carbidopa/Levodopa 25-100 mg Tablet PO SCH (10:23)
[2020-02-13] MEDS: Carvedilol 3.125 MG TAB PO SCH (10:23)
[2020-02-13] MEDS: Furosemide 20 MG TAB PO SCH (10:23)
[2020-02-13 11:42] VITALS: BP 122/65; TEMP 97.9
--- NOTE | 2020-02-14 08:11 | DIS ---
DATE OF ADMISSION: 02/04/2020 DATE OF DISCHARGE: 02/13/2020 RESIDENT: Kassy Choi DO ADMITTING ATTENDING: Elizabeth Rome MD DISCHARGE ATTENDING: German Mcnamara MD CONSULT: Dr. Herrera/Freddie/Sally of Cardiology PROCEDURES AND IMAGIN02/04/20: Chest x-ray showed pulmonary vascular congestion, diffuse interstitial prominence, bilateral pleural effusions,and airspace disease in the right base. Combination of findings suggest pulmonary infectious pneumonitis or aspiration as a possibility. 02/06/20: ECHO: showed LVEF at 55-60% with diastolic dysfunction that could not be assessed due to afib 02/07/20: CTA was done and showed evidence of small emboli in upper lobe of pulmonary arteries bilaterally, moderate-sized bilateral pleural effusions with dense conversive atelectasis of both lower lobes, patchy infiltrates seen in both upper lobes consistent with associated pneumonia. PRIMARY DIAGNOSES: Acute hypoxic respiratory failure 2/2 PE, CHF exacerbation, Physical deconditioning SECONDARY DIAGNOSES: Atrial Fibrillation, Lewy Body Dimentia, Hypertension, Anemia, Hypokalemia/natremia DISCHARGE MEDICATIONS: 1. Coreg 3.125 b.i.d. 2. Digoxin 0.125 mg p.o. q.a.m. 3. Cardizem 180 p.o. daily. 4. Furosemide 20 mg p.o. daily. 5. DuoNebs q6 hours. 6. Hyzaar 100 mg/25 mg p.o. daily. 7. Potassium chloride 40 mEq p.o. b.i.d. 8. Senakot 2 tabs p.o. b.i.d. 9. Aspirin 81 mg. 10. Carbidopa-levodopa 1 tab p.o. t.i.d. 11. Apixaban 5 mg p.o. b.i.d. DISCONTINUED MEDICATIONS: Metoprolol Succinate 25mg HISTORY OF PRESENT ILLNESS: This is an 84-year-old female with past medical history of hypertension, dementia, and atrial fibrillation, presented for generalized weakness. Three days prior to admission the patient began having decreased urine output, and her fluid intake also was decreasing per her son. During that time, the patient's son had noticed that her lower extremities were more edematous and that she became totally immobile. The patient was also complaining of new pain and had difficulty expressing location of that pain due to her dimentia and mental status. HOSPITAL COURSE: 1. Acute Hypoxic Resp Failure: this was suspected to be due to emboli and pleural effusions as described on CTA above. Pt was started on eliquis per her son's request as he is her medical decision maker. 2. CHF: echo was done with findings as shown above. cardiology d/c metoprolol home medication and started coreg. 3. Afib: pt was well controlled on digoxin, ditiazem, and bblocker 4. Anemia: pt's anemia was deemed chronic and stable and pt did not have any active bleeding 5. Physical deconditioning: with PT's evaluation of patient's mobility and due to patient's declining functional status and immobility since August of this year, it was determined that the patient would [facility] after hospitalization. DISPOSITION: Stable. DISCHARGE INSTRUCTIONS: 1. Location: [facility] facility. 2. Diet: Heart healthy. 3. Activity: Ambulate with assistance. 4. Followup: 1-[address] Poe, PCP. Job ID: [id number] [facility]
--- NOTE | 2020-02-15 03:09 | PQF ---
CLINICAL DOCUMENTATION CLARIFICATION FORM: Dear : ___ Priya Rodríguez MD DateTime:2019 Please exercise your independent, professional judgment in responding to the clarification form. Clinical indicators are provided on the bottom of this form for your review Please check appropriate box(es): [ X ] Weakness/deconditioning due to CHF exacerbation [ X ] Weakness/deconditioning due to Pulmonary embolism [ X ] Weakness/deconditioning due to Lewy body dementia [ ] Weakness/deconditioning due to unspecified cause [ ] Other diagnosis [ ] Unable to determine Physician Signature: Date/Time: For continuity of documentation, please document condition throughout progress notes and discharge summary. Thank You. To be completed by CDI/Coding staff for physician review: w Present w Clinical Indicators - Signs / Symptoms / Labs w Results and Location in Medical Record w [x ] w Physical reconditioning, lower extremity edema, Lewy body dementia, atrial fibrillation w , 02/12, Flori Latasha DO w [x ] w Small emboli in upper lobe of pulmonary arteries bilaterally, moderate sized bilateral pleural effusions with dense conversive atelectasis of both lower lobes w DS, [facility] [x ] w CHF exacerbation, suspected w Family medicine PN, 02/12, Priya Rodríguez MD w [ x ] w Hypokalemia w Family medicine PN, 02/12, Priya Rodríguez MD w [ x ] w Afib with RVR w Cardiology PN, 02/11, Sally Garcia MD w [ x] w Acute hypoxic resp failure likely 2/2 PE w Family medicine PN, 02/10, Serjio Wheeler MD w Present w Risk Factors w Results and Location in Medical Record w [x ] w Acute hypoxic resp failure w [facility] medicine PN, 02/12, Priya Rodríguez MD w [ x] w Lewy body dementia w [facility] medicine PN, 02/12, Priya Rodríguez MD w w w w w w w Present w Treatments w Results and Location in Medical Record w [x ] w PT/OT, speech therapy, consults w [facility] Medicine H&P, 02/04, Elizabeth Lopes MD w [ x ] w Sodium chloride.IV w SEP, 02/03 w [ x ] w Furosemide.IV w SEP, 02/03 CDS/[employer]optic Meteorologist Signature: Lamonte Bills Phone #: [phone] Date/Time:_02/15/2020 This is a permanent part of the Medical Record [facility]
[2020-02-18] MEDS ORDERED: Apixaban 5 MG TAB PO SCH (09:00)
== END 2020-02-13 15:30 | DRG 56 ==
LOC: ERS 14:14 → OBSVTOIN 18:20 → 2NO 18:20
PROVIDERS: ADMIT Family Medicine; ATTEND Family Medicine
DX: G31.83 Neurocognitive disorder with Lewy bodies (principal); I26.99 Other pulmonary embolism without acute cor pulmonale; J96.01 Acute respiratory failure with hypoxia; I50.33 Acute on chronic diastolic (congestive) heart failure; E87.1 Hypo-osmolality and hyponatremia; Z66 Do not resuscitate; I11.0 Hypertensive heart disease with heart failure; D64.9 Anemia, unspecified; I34.0 Nonrheumatic mitral (valve) insufficiency; E87.6 Hypokalemia; R53.81 Other malaise; I48.0 Paroxysmal atrial fibrillation; F02.80 Dementia in other diseases classified elsewhere, unspecified severity, without behavioral disturbance, psychotic disturbance, mood disturbance, and anxiety; Z90.710 Acquired absence of both cervix and uterus; Z88.0 Allergy status to penicillin; Z79.01 Long term (current) use of anticoagulants
CPT/HCPCS: 36415; 36416; 51701; 51798; 71045; 71275; 80048; 80053; 81003; 82550; 83690; 83735; 83880; 84443; 84484; 85025; 90471; 90670; 93005; 93306; 94640; 96365; 96375; 96376; G0009; G0378; J0456; J1160; J1650; J1940; J7620; Q9967

== ENCOUNTER 2022-10-01 08:05 | Emergency (ER) | payer OTHER ==
[2022-10-01 09:38] LABS: #Eosinphils 0.2 thou/uL (0.0-0.7); #Lymphocytes 1.3 thou/uL (1.20-3.40); #Monocytes 0.4 thou/uL (0.11-0.59); #Neutrophils 3.6 thou/uL (1.40-6.50); %Basophils 0.5 % (0.0-1.0); %Eosinophils 3.1 % (0.0-10.0); %Lymphocytes 23.2 % (21.0-51.0); %Monocytes 7.9 % (0.0-10.0); %Neutrophils 65.3 % (42.0-75.0); Hemoglobin 11.8 g/dL (12.0-16.0); Mean Corpuscular HGB CONC 30.4 g/dL (32.0-36.0); Mean Corpuscular Hemoglobin 29.1 pg (27.0-31.0); Mean Corpuscular Volume 95.6 fl (78.0-98.0); Mean Platelet Volume 9.5 fL (7.4-10.4); Platelet Count 302 10x3/uL (130-400); RBC Distribution Width 13.3 % (11.5-14.5); Red Blood Cell (RBC) Count 4.07 mill/uL (4.20-5.40); White Blood Cell (WBC) Count 5.5 10x3/uL (4.8-10.8)
[2022-10-01 09:47] LABS: INR-International Normal Ratio 1.4; PTT 30.5 sec (22.9-36.1); Prothrombin Time 17.4 sec (12.0-14.7)
[2022-10-01 10:00] LABS: ALT (SGPT) Less than 7 U/L (8-55); AST (SGOT) 14 U/L (5-34); Albumin 2.7 g/dL (3.4-4.8); Alkaline Phosphatase 114 U/L (40-110); Anion Gap 12 mmol/L (10-20); BUN (Urea Nitrogen) 23 mg/dL (9.8-20.1); Bilirubin, Total 1.2 mg/dL (0.2-1.2); CK (CPK) 26 U/L (29-168); Calc. Creatinine Clearance 0 mL/min (70-130); Carbon Dioxide 25 mmol/L (23-31); Chloride 101 mmol/L (98-107); Estimated GFR 86; Globulin 4.7 g/dL (2.4-3.5); Glucose 116 mg/dL (83-110); Potassium 4.4 mmol/L (3.5-5.1); Protein, Total 7.4 g/dL (5.8-8.1); Sodium 134 mmol/L (136-145)
[2022-10-01 10:35] LABS: Bacteria/HPF 4+ HPF (None Seen); Bilirubin Negative (Negative); Blood, Urine Negative (Negative); Clarity Turbid (Clear); Glucose, Urine (Dipstick) Normal (Negative); Ketone, Urine Negative (Negative); Leukocyte 500 Leu/uL (Negative); Nitrite Negative (Negative); Protein, Urine (Dipstick) Negative (Neg-Trace); RBC/HPF 0-3 HPF (0-3); Squamous Epithelial 0-3 HPF (0-3); Urobilinogen Normal mg/dL (Less than 2); WBC/HPF 21-50 HPF (0-3); pH, Urine 7.5 (5.0-9.0)
== END 2022-10-01 12:03 | disposition home or self-care (01) ==
LOC: ERS 08:05
DX: M79.18 Myalgia, other site (principal); W05.0XXA Fall from non-moving wheelchair, initial encounter; Z79.82 Long term (current) use of aspirin; Z79.01 Long term (current) use of anticoagulants
CPT/HCPCS: 36415; 51701; 70450; 71045; 72125; 72170; 80053; 81003; 81015; 82550; 83605; 85025; 85610; 85730; 93005